=== PATIENT | female | born 1940 | race Asian ===

== ENCOUNTER 2021-12-28 22:27 | Inpatient (IN) | payer MEDICARE, OTHER ==
[~2021-12-28] VITALS: Ht 157.5 cm; Wt 60.8 kg
[~2021-12-28 22:27] MED LIST: ASPI-1169 PO; ATOR40TA PO; CHOL200026 PO; CLON0.5T4 PO; CYAN500T64 PO; DOCU-270 PO; DONE10TA44 PO; MELA3TAB41 PO; MEMA5TAB PO; MIRT-90 PO; QUET25TA PO; SENN-261 PO; VITA1TAB56 PO
--- NOTE | 2021-12-28 22:31 | NUR ---
BLADIMIR [id number] C/O HYPOXIA NOTED @ 60% IN RA, NON REBREATHER AT 88% WITH MAX O2. PATIENT A/O X 1. PATIENT TAKEN TO ER BED 09, RT AND ER MD AT BEDSIDE. PATIENT CONNECTED TO CARDIAC AND POX MONITOR.
--- NOTE | 2021-12-28 22:32 | NUR ---
RT AT PT'S BEDSIDE
[2021-12-28] MEDS ORDERED: KETAMINE HCL (500MG/10ML) 50 MG/ML VIAL ONE (22:33)
--- NOTE | 2021-12-28 22:34 | NUR ---
L HAND #18G S/L; PATENT AND INTACT
--- NOTE | 2021-12-28 22:35 | NUR ---
MARÍA BS 162
--- NOTE | 2021-12-28 22:37 | NUR ---
INTUBATION: DR. LAW MORE AND RT AT PT'S BEDSIDE. VERBAL ORDER FOR & ADMINISTERED 2235 ROCONIUM BROMIDE 60MG IVP 6 KETAMINE 120MG IVP BP 105/59 HR 135. TEMP 103.8F 2237 ETT 7CM, 23 AT THE LIP. PT TOLERATED PROCEDURE WELL.
--- NOTE | 2021-12-28 22:40 | NUR ---
VENT SETTINGS: FIO2 100 VT 450 RR 22 I:E 1:3 PEEP 5
--- NOTE | 2021-12-28 22:49 | NUR ---
RT pt intubated due to resp distress. pt intubated with ett size 7.0, 23@teeth. placement verified with etco2 detector, lung sounds, and bilateral chest rise. will confirm with xray. pt placed on vent with settings: AC 22 450 100% +5. vent plugged in to red outlet. ambu bag at bedside. alarms on and audible. will continue to monitor.
--- NOTE | 2021-12-28 22:49 | NUR ---
CALLED FACILITY TO REQUEST CLINICAL PACKET FOR PT.
--- NOTE | 2021-12-28 22:54 | NUR ---
COVID SWAB DONE AND SENT TO LAB
[2021-12-28] MEDS ORDERED: VANCOMYCIN 1 GM VIAL ONE (22:57)
--- NOTE | 2021-12-28 22:57 | NUR ---
DIRECTOR OF RESIDENCE LIFE AT PT'S BEDSIDE
--- NOTE | 2021-12-28 22:58 | NUR ---
Note wiliamone in EDM - 12/28/21 at 2301 by LAWRENCE INTUBATION: DR. LAW MORE AND RT AT PT'S BEDSIDE. VERBAL ORDER FOR & ADMINISTERED 6 ROCONIUM BROMIDE 60MG IVP 6 KETAMINE 120MG IVP BP 105/59 HR 135. TEMP 103.8F 2237 ETT 7CM, 23 AT THE LIP. PT TOLERATED PROCEDURE WELL.
[2021-12-28] MEDS ORDERED: ACETAMINOPHEN 650 MG/SUPP.RECT RC ONE (23:00)
[2021-12-28] MEDS ORDERED: CEFEPIME 1 GM in IV D5W 50 ML IV ONE (23:00)
[2021-12-28] MEDS ORDERED: ROCURONIUM BROMIDE 50 MG/5 ML IV ONE (23:00)
[2021-12-28] MEDS ORDERED: IV NS 0.9% 2,000 ML IV ONE (23:00)
[2021-12-28] MEDS ORDERED: KETAMINE HCL(200MG/20ML) 10 MG/ML VIAL IV ONE (23:00)
[2021-12-28] MEDS ORDERED: VANCOMYCIN 1 GM in IV D5W 250 ML IV ONE (23:00)
[2021-12-28] MEDS ORDERED: NOREPINEPHRINE 4 MG/4 ML AMPUL IV ONE ×2 (23:12→23:27)
[2021-12-28] MEDS ORDERED: PROPOFOL 100 ML ONE (23:12)
--- NOTE | 2021-12-28 23:16 | NUR ---
16FR F/C INSERTED. URINE COLLECTED AND SENT TO LAB
--- NOTE | 2021-12-28 23:16 | NUR ---
ATTEMPTED NGT. RESISTENCE NOTED & NOT ABLE TO INSERT NGT.
--- NOTE | 2021-12-28 23:21 | NUR ---
DR. LAW MORE AT PT'S BEDSIDE FOR PICCLINE INSERTION
[2021-12-28] MEDS ORDERED: CEFEPIME 1 GM VIAL ONE (23:38)
--- NOTE | 2021-12-28 23:40 | NUR ---
PROPOFOL INTIATED AT 5MCG/KG/MIN
--- NOTE | 2021-12-28 23:43 | NUR ---
RT AT PT'S BEDSIDE FOR ABG, GREASE WORKER AT PT'S BEDSIDE
--- NOTE | 2021-12-28 23:43 | NUR ---
RT AT BEDSIDE FOR ABG
[2021-12-28 23:51] LABS: ABG BASE EXCESS -6.2 mmol/L; ABG PCO2 28.4 mmHg (35.0-45.0); ABG PH 7.403 (7.350-7.450); ABG PO2 413.5 mmHg (75.0-100.0); COHb 0.3 % (0.5-1.5); MetHb 0.5 % (0.0-1.5); O2Hb 98.7 % (94.0-97.0); SITE, ABG Left Radial; VENT MODE, BG AC 22 450 100% +5
[2021-12-28 23:55] LABS: BILIRUBIN,URINE NEGATIVE (NEGATIVE); COLOR,URINE YELLOW (YELLOW); LEUKOCYTE ESTERASE ,URINE MODERATE (NEGATIVE); NITRITE, URINE NEGATIVE (NEGATIVE); PH,URINE 6.5 (5.0-8.0); PROTEIN,URINE NEGATIVE (NEGATIVE); UGLUCOSE NEGATIVE (NEGATIVE); UROBILINOGEN,URINE 0.2 EU/dL (0.2)
[2021-12-28 23:56] LABS: BASOPHILS % (AUTO) 0.2 % (0.0-2.0); EOSINOPHILS % (AUTO) 0.3 % (0.0-6.0); HEMATOCRIT 33 % (33-45); HEMOGLOBIN 10.9 g/dL (11.5-14.8); LYMPHOCYTES # (AUTO) 0.2 K/uL (0.8-4.8); LYMPHOCYTES % (AUTO) 13.1 % (20.0-44.0); MEAN CORPUSCULAR HGB CONC 33 g/dl (31.0-36.0); MEAN CORPUSCULAR VOLUME 90 fL (82-100); MONOCYTES # (AUTO) 0.1 K/uL (0.1-1.30); MONOCYTES % (AUTO) 8.4 % (2.0-12.0); PLATELET COUNT (AUTO) 135 K/uL (150-450); RED BLOOD CELL COUNT(AUTO) 3.68 MIL/uL (4.0-5.2)
[2021-12-29] VITALS (82 sets, daily range): BP systolic 82–164; BP diastolic 38–114
[2021-12-29] MEDS ORDERED: PROPOFOL 100 ML IV ONE
[2021-12-29] MEDS ORDERED: NOREPINEPHRINE 8 MG in IV NS 0.9% 250 ML IV ONE ×2
--- NOTE | 2021-12-29 00:13 | NUR ---
PROPOFOL INCREASED TO 8MCG/KG/MIN
[2021-12-29] MEDS ORDERED: LACT10SO3 PO (00:14)
[2021-12-29] MEDS ORDERED: ACET-73 PO (00:14)
[2021-12-29] MEDS ORDERED: ROSU10TA2 PO (00:14)
[2021-12-29] MEDS ORDERED: AMLO2.5T4 PO (00:14)
[2021-12-29] MEDS ORDERED: OMEP40CA21 PO (00:14)
[2021-12-29 00:17] LABS: WHITE BLOOD COUNT (AUTO) 1.3 K/uL (4.3-11.0)
[2021-12-29 00:20] LABS: ALANINE AMINOTRANSFERASE 17 U/L (12-78); ALBUMIN 2.1 g/dL (3.4-5.0); ALKALINE PHOSPHATASE 46 U/L (46-116); ASPARTATE AMINOTRANSFERASE 17 U/L (15-37); BILIRUBIN,DIRECT 0.1 mg/dL (0.0-0.2); BILIRUBIN,TOTAL 0.6 mg/dL (0.2-1.0); CALCIUM, SERUM 7.1 mg/dL (8.5-10.1); CARBON DIOXIDE 19 mmol/L (21-32); CHLORIDE 112 mmol/L (98-107); CREATININE 1.4 mg/dL (0.6-1.3); GLUCOSE 217 mg/dL (74-106); SODIUM SERUM 144 mmol/L (136-145); TOTAL PROTEIN, SERUM 4.8 g/dL (6.4-8.2); UREA NITROGEN, BLOOD 18 mg/dL (7-18)
[2021-12-29 00:22] LABS: POTASSIUM 2.4 mmol/L (3.5-5.1)
--- NOTE | 2021-12-29 00:28 | NUR ---
EPIC PANEL PAGED
--- NOTE | 2021-12-29 00:35 | NUR ---
LEVOPHED INITIATED AT CENTRAL LINE 0.2MCG/KG/MIN DUE TO HYPOTENSION
--- NOTE | 2021-12-29 00:40 | NUR ---
LEVOPHED INCREASED TO 0.3MCG/KG/MIN
[2021-12-29] MEDS ORDERED: POTASSIUM CL. PREMIX PERIPHER. 200 ML ONE (00:41)
[2021-12-29] MEDS: POTASSIUM CL. PREMIX PERIPHER. 50 ML IV SCH ×4 (00:45→03:54)
--- NOTE | 2021-12-29 00:47 | NUR ---
LEVOPHED TITRATED DOWN TO 0.2MCG/KG/MIN
--- NOTE | 2021-12-29 01:04 | NUR ---
REPORT TO ALINA
--- NOTE | 2021-12-29 01:31 | NUR ---
LEVOPHED TITRATED UP TO 0.3MCG/KG/MIN
--- NOTE | 2021-12-29 01:45 | NUR ---
RT AT PT'S BEDSIDE FOR ABG
[2021-12-29 01:52] LABS: ABG BASE EXCESS -8.5 mmol/L; ABG PCO2 31.2 mmHg (35.0-45.0); ABG PH 7.332 (7.350-7.450); ABG PO2 77.4 mmHg (75.0-100.0); COHb 0.3 % (0.5-1.5); MetHb 0.4 % (0.0-1.5); SITE, ABG Left Radial; VENT MODE, BG AC 18 450 50% +5
--- NOTE | 2021-12-29 02:28 | NUR ---
PT WAS NOTED HAVING A TONIC CLONIC SEIZURE, MD WAS CALLED TO BEDSIDE. RECEIVED AN ORDER TO GIVE ATIVAN 2MG IVP X 1. NOTED AND CARRIED OUT
[2021-12-29] MEDS ORDERED: LORAZEPAM INJ 2 MG/ML VIAL ONE (02:30)
[2021-12-29] MEDS ORDERED: LORAZEPAM INJ 2 MG/ML VIAL IV ONE ×2 (03:00→15:00)
[2021-12-29] MEDS ORDERED: LEVETIRACETAM (500MG) 500 MG in IV NS 0.9% 100 ML IV SCH (03:00)
[2021-12-29] MEDS ORDERED: PROPOFOL 10MG/ML 50ML 50 ML IV PRN (03:00)
[2021-12-29] MEDS ORDERED: NOREPINEPHRINE 8 MG in IV NS 0.9% 242 ML IV PRN ×2 (03:00→09:00)
[2021-12-29] MEDS ORDERED: ONDANSETRON HCL/PF 4 MG/2 ML VIAL IVP PRN (03:00)
--- NOTE | 2021-12-29 03:17 | NUR ---
PT TRANSPORTED TO CT SCAN VIA GURNEY ACCOMPANIED BY RT. PROPOFOL INFUSING AT 18MCG/KG/MIN AT LH 18G , POTASSIUM INFUSING AT 50ML/HR AT RH 18G, LEVOPHED INFUSING AT 0.3MCG/KG/MIN VIA CENTRAL LINE. PT TRANSPORTED FROM CT SCAN TO ICU TOOM 259 WITHOUT INCIDENT.
--- NOTE | 2021-12-29 03:30 | NUR ---
RN ADMISION NOTE RECEIVED PATIENT VIA GURNEY. TRANSFER TO BED WITHOUT INJURY. PATIENT IS OBTUNDED, WITHDRAWNS FROM PAIN. ON MECHANICAL VENT, 7/23CM. AC 22, TV 450 FIO2 50 PEEP 5. NO S/S PAIN. CONNECTED TO MONITOR. SINUS RHYTHM HR 90S - 110S. IV ACCESS IN RIJ PICC, LEFT AND RIGHT HAND #20. RUNNING PROPOFOL@8MCG, INCREASED TO 10MCG, K RUNNING @50ML/HR, LEVO @0.3MCG/KG/MIN. FLORES CATHETER PRESENT DRAINING TO GRAVITY. SKIN INTACT. BED IS LOW AND LOCKED, HOB ELEVTAED IN SEMI FOWLERS, SIDE RAILS UP X2, . OBTAINED ADMISSION INFO FROM [facility] FACE SHEET.
[2021-12-29] MEDS: IV NS 0.9% 1,000 ML IV PRN ×2 (03:34→15:17)
[2021-12-29] MEDS ORDERED: LEVETIRACETAM (500MG) 500 MG/5 ML VIAL IV ONE (03:40)
[2021-12-29] MEDS: ENOXAPARIN SODIUM 30 MG/0.3 ML DISP.SYRIN SQ SCH ×2 (03:42→21:06)
[2021-12-29] MEDS ORDERED: PIPERACILLIN /TAZOBACTAM 3.375 G VIAL IV ONE (04:07)
[2021-12-29] MEDS ORDERED: ZOSYN IVPB 3.375 G in IV D5W 50ml IV SCH (06:00)
--- NOTE | 2021-12-29 06:20 | NUR ---
RN CLOSING NOTE SEDATED. ON MECHANICAL VENT, 7/23CM. AC 20, TV 450 FIO2 50 PEEP 5. NO S/S PAIN. SINUS RHYTHM ON THE MONITOR. PATIENT DID HAVE A SEIZURE EPISODE, IFEANYI SKY AWARE. KEPPRA WAS INFUSING AT THAT TIME, LASTED 3 MINUTES . RIJ PICC RUNNING DIP @10, AND LEVO @0.1MCG., LEFT HAND RUNNING NS @75. FLORES CATHETER MAINTAINED. NO BM. BED IS LOW AND LOCKED, HOB ELEVTAED IN SEMI FOWLERS, SIDE RAILS UP X2,
[2021-12-29 06:41] LABS: RBC,URINE 0-2 /HPF (0-2)
[2021-12-29 06:42] LABS: BACTERIA,URINE Few /HPF (None Seen); SQUAMOUS EPITHELIAL CELL,UR Few /HPF (None Seen)
[2021-12-29] MEDS ORDERED: IV NS 0.9% 1,000 ML IV ONE (07:00)
[2021-12-29 08:24] LABS: LYMPHOCYTES % (MANUAL) 34 % (16-48); MONOCYTES % (MANUAL) 2 % (0-11.0); NEUTROPHILS % (MANUAL) 64 (42-76)
[2021-12-29 08:33] LABS: BASOPHILS % (AUTO) 0.1 % (0.0-2.0); HEMATOCRIT 35 % (33-45); HEMOGLOBIN 11.5 g/dL (11.5-14.8); LYMPHOCYTES # (AUTO) 0.5 K/uL (0.8-4.8); LYMPHOCYTES % (AUTO) 9.6 % (20.0-44.0); MEAN CORPUSCULAR HGB CONC 33 g/dl (31.0-36.0); MEAN CORPUSCULAR VOLUME 91 fL (82-100); MONOCYTES # (AUTO) 0.2 K/uL (0.1-1.30); MONOCYTES % (AUTO) 4.6 % (2.0-12.0); NEUTROPHILS # (AUTO) 4.5 K/uL (1.8-8.9); NEUTROPHILS % (AUTO) 85.7 % (43.0-81.0); PLATELET COUNT (AUTO) 160 K/uL (150-450); RED BLOOD CELL COUNT(AUTO) 3.84 MIL/uL (4.0-5.2); WHITE BLOOD COUNT (AUTO) 5.2 K/uL (4.3-11.0)
[2021-12-29 09:03] LABS: CALCIUM, SERUM 7.2 mg/dL (8.5-10.1); CARBON DIOXIDE 19 mmol/L (21-32); CHLORIDE 113 mmol/L (98-107); CREATININE 1.6 mg/dL (0.6-1.3); GLUCOSE 189 mg/dL (74-106); POTASSIUM 3.9 mmol/L (3.5-5.1); SODIUM SERUM 143 mmol/L (136-145); UREA NITROGEN, BLOOD 21 mg/dL (7-18)
[2021-12-29] MEDS: PANTOPRAZOLE 40 MG VIAL IV SCH (09:16)
[2021-12-29] MEDS: ZOSYN IVPB 2.25 G in IV D5W 50ml IV SCH ×2 (12:29→18:02)
[2021-12-29] MEDS ORDERED: ROCURONIUM BROMIDE 50 MG/5 ML IV ONE (13:11)
[2021-12-29] MEDS ORDERED: LEVETIRACETAM (500MG) 1,000 MG in IV NS 0.9% 100 ML IV STA (14:48)
[2021-12-29] MEDS ORDERED: LORAZEPAM INJ 2 MG/ML VIAL IV PRN (15:00)
[2021-12-29] MEDS: PROPOFOL 100 ML IV PRN (15:18)
[2021-12-29] MEDS: LEVETIRACETAM (500MG) 1,000 MG in IV NS 0.9% 100 ML IV SCH (21:05)
[2021-12-29] MEDS: VANCOMYCIN 1 GM in IV D5W 250ml IV SCH (22:49)
[2021-12-30] VITALS (96 sets, daily range): BP systolic 104–157; BP diastolic 51–98
[2021-12-30] MEDS: ZOSYN IVPB 2.25 G in IV D5W 50ml IV SCH ×4 (00:08→18:55)
[2021-12-30] MEDS: PROPOFOL 100 ML IV PRN ×2 (01:15→15:38)
[2021-12-30] MEDS: ACETAMINOPHEN 650 MG/SUPP.RECT RC PRN ×3 (04:18→19:04)
--- NOTE | 2021-12-30 04:18 | NUR ---
ICU/PEDODONTIST TYLENOL SUPP. GIVEN FOR TEMP. 100.8 AX. WILL CONTINUE TO MONITOR THIS PT AND HER TEMP.
[2021-12-30] MEDS: IV NS 0.9% 1,000 ML IV PRN ×2 (04:39→19:00)
[2021-12-30 05:36] LABS: BASOPHILS % (AUTO) 0.1 % (0.0-2.0); HEMATOCRIT 32 % (33-45); HEMOGLOBIN 10.6 g/dL (11.5-14.8); LYMPHOCYTES # (AUTO) 0.8 K/uL (0.8-4.8); LYMPHOCYTES % (AUTO) 6.1 % (20.0-44.0); MEAN CORPUSCULAR HGB CONC 33 g/dl (31.0-36.0); MEAN CORPUSCULAR VOLUME 89 fL (82-100); MONOCYTES # (AUTO) 0.4 K/uL (0.1-1.30); MONOCYTES % (AUTO) 3.3 % (2.0-12.0); NEUTROPHILS % (AUTO) 90.5 % (43.0-81.0); PLATELET COUNT (AUTO) 155 K/uL (150-450); RED BLOOD CELL COUNT(AUTO) 3.57 MIL/uL (4.0-5.2); WHITE BLOOD COUNT (AUTO) 13.2 K/uL (4.3-11.0)
[2021-12-30 06:14] LABS: CALCIUM, SERUM 7.2 mg/dL (8.5-10.1); CARBON DIOXIDE 22 mmol/L (21-32); CHLORIDE 114 mmol/L (98-107); CREATININE 1.2 mg/dL (0.6-1.3); GLUCOSE 104 mg/dL (74-106); MAGNESIUM 1.3 mg/dL (1.8-2.4); PHOSPHORUS 2.4 mg/dL (2.5-4.9); POTASSIUM 3.6 mmol/L (3.5-5.1); SODIUM SERUM 143 mmol/L (136-145); UREA NITROGEN, BLOOD 20 mg/dL (7-18)
--- NOTE | 2021-12-30 06:14 | NUR ---
ICU/ROPE RIDER COOLING MEASURES WERE DONE FOR TEMP. 100.8 AX EARLIER, TEMP NOW IS 100.1. WILL CONTINUE TO MONITOR THIS PT AND HER TEMP.
[2021-12-30 06:15] LABS: CHOLESTEROL 90 mg/dL (<200); HDL CHOLESTEROL 49 mg/dL (40-60); LDL 23 mg/dL (0-99); TRIGLYCERIDES 104 mg/dL (30-150)
--- NOTE | 2021-12-30 08:30 | NUR ---
RN NOTES GET TO ORDER FROM DR METZGER'S NO SEDATION VACATION TODAY. PATIENT ON DIPRIVAN FOR SEDATION 15MCG/KG/MIN, AND NS @75ML/HR. PATIENT HAS NO SEIZURE OF TWITCHING AT THIS TIME. PATIENT TOLERATING ETT/VENT SETTING, TOLERATING SETTING WELL. DUE MEDICATION ADMINISTERED, FLORES DRAINING VIA GRAVITY. ASSIST TURN AND REPOSTION Q 2 HR. OGT INTACT. WILL FOLLOW UP.
[2021-12-30] MEDS: LEVETIRACETAM (500MG) 1,000 MG in IV NS 0.9% 100 ML IV SCH (09:02)
[2021-12-30] MEDS: PANTOPRAZOLE 40 MG VIAL IV SCH (09:02)
--- NOTE | 2021-12-30 09:30 | NUR ---
RN NOTES GET STAT ORDER FOR EEG TEST PER NEUROLOGIST. ORDER TAKEN AND CARRIED OUT.
--- NOTE | 2021-12-30 12:36 | NUR ---
rn notes patient T-101.8F administered Tylenol 650 mg prn rectal supp, also started OGT feeding Jevity 1.2 @20ml/hr goal 9is 45ml/hr. will follow up..
--- NOTE | 2021-12-30 13:00 | NUR ---
rn notes patient getting EEG at this time per Dr. Messer's order.
[2021-12-30] MEDS: JEVITY 1.2 CAL 1,000 ML BOTTLE GT PRN (13:15)
[2021-12-30] MEDS ORDERED: MAGNESIUM OXIDE 400 MG TABLET NG ONE ×2 (13:30→14:30)
[2021-12-30] MEDS ORDERED: NEUTRA PHOS 1 POWD.PACKET NG ONE (15:30)
[2021-12-30 17:51] LABS: ALBUMIN 2.3 g/dL (3.4-5.0); BILIRUBIN,DIRECT 0.2 mg/dL (0.0-0.2); BILIRUBIN,TOTAL 0.6 mg/dL (0.2-1.0); TOTAL PROTEIN, SERUM 5.5 g/dL (6.4-8.2)
--- NOTE | 2021-12-30 19:04 | NUR ---
RN NOTES T-101.6 F ADMINISTERED TYLENOL 650 MG SUPP RECTAL, AND COOLING MEASURE. ENDORSED ONCOMING NURSE FOLLOW COREY,
--- NOTE | 2021-12-30 19:39 | NUR ---
CARD READER OPENING NOTES: RECEIVED PATIENT IN BED, SEDATED, PT IS OBTUNDED, RESPONSIVE TO PAINFUL STIMULI. ON MECHANICAL VENT SETTING AND PT TOLERATED WELL. 7/23CM, AC-20, TV-450, PEEP-5. O2 SAT- 97%. IV ACCESS ON RT IJ PICC, LEFT AND RT HAND#20G INTACT AND PATENT. NO S/S OF INFILTRATIONS. RUNNING PROPOFOL 20MCG, NS RUNNING AT 75CC/HR. NO FACIAL GRIMACING NOTED. NO ACUTE DISTRESS. TEMP- 101.5. COOLING MEASURES PROVIDED. FLORES CATHETER INTACT AND PATENT WITH DRAINING BY GRAVITY. ALL SAFETY MEASURES IN PLACE. BED IN LOWEST POSITION AND LOCKED. SIDE RAILS UP X3, PLACE CALL LIGHT WITH IN REACH. WILL CONTINUE TO MONITOR
[2021-12-30] MEDS: LEVETIRACETAM (500MG) 1,500 MG in IV NS 0.9% 100 ML IV SCH (20:17)
[2021-12-30] MEDS: ENOXAPARIN SODIUM 30 MG/0.3 ML DISP.SYRIN SQ SCH (20:18)
--- NOTE | 2021-12-30 20:45 | NUR ---
RN NOTES: PT WAS TAKEN TO DO CT SCAN OF THE HEAD WITH ACLS PROTOCOL. WILL CONTINUE TO MONITOR
--- NOTE | 2021-12-30 21:10 | NUR ---
RN NOTES: PT CAME BACK AFTER CT SCAN WITHOUT ANY DISTRESS. WILL CONTINUE TO MONITOR
[2021-12-30] MEDS: VANCOMYCIN 1 GM in IV D5W 250ml IV SCH (22:47)
[2021-12-31] VITALS (96 sets, daily range): BP systolic 88–174; BP diastolic 48–101
[2021-12-31] MEDS: ZOSYN IVPB 2.25 G in IV D5W 50ml IV SCH ×4 (00:20→17:43)
[2021-12-31] MEDS: PROPOFOL 100 ML IV PRN ×2 (03:09→15:01)
[2021-12-31 04:43] LABS: BASOPHILS % (AUTO) 0.1 % (0.0-2.0); EOSINOPHILS % (AUTO) 0.1 % (0.0-6.0); HEMATOCRIT 30 % (33-45); HEMOGLOBIN 9.8 g/dL (11.5-14.8); LYMPHOCYTES # (AUTO) 0.5 K/uL (0.8-4.8); LYMPHOCYTES % (AUTO) 4.2 % (20.0-44.0); MEAN CORPUSCULAR HGB CONC 33 g/dl (31.0-36.0); MEAN CORPUSCULAR VOLUME 89 fL (82-100); MONOCYTES # (AUTO) 0.2 K/uL (0.1-1.30); MONOCYTES % (AUTO) 2.2 % (2.0-12.0); NEUTROPHILS # (AUTO) 10.5 K/uL (1.8-8.9); NEUTROPHILS % (AUTO) 93.4 % (43.0-81.0); PLATELET COUNT (AUTO) 128 K/uL (150-450); RED BLOOD CELL COUNT(AUTO) 3.32 MIL/uL (4.0-5.2); WHITE BLOOD COUNT (AUTO) 11.3 K/uL (4.3-11.0)
[2021-12-31 05:06] LABS: CREATININE 0.9 mg/dL (0.6-1.3); MAGNESIUM 1.5 mg/dL (1.8-2.4); PHOSPHORUS 1.9 mg/dL (2.5-4.9); POTASSIUM 3.2 mmol/L (3.5-5.1)
[2021-12-31] MEDS: ACETAMINOPHEN 650 MG/SUPP.RECT RC PRN ×2 (05:43→12:34)
--- NOTE | 2021-12-31 05:48 | NUR ---
RN NOTES: PT'S TEMP INCREASED TO 100.2, TYLENOL SUPPOSITORY GIVEN PER PRN ORDER. PT TOLERATED WELL. WILL CONTINUE TO MONITOR
[2021-12-31 05:56] LABS: BAND % (MANUAL) 9 % (0.0-5.0); LYMPHOCYTES % (MANUAL) 2 % (16-48); MONOCYTES % (MANUAL) 1 % (0-11.0); NEUTROPHILS % (MANUAL) 88 (42-76)
--- NOTE | 2021-12-31 06:33 | NUR ---
ITALIAN TUTOR CLOSING NOTES: PATIENT IN BED, SEDATED, OBTUNDED, RESPONSIVE. ON MECHANICAL VENT SETTING AND PT TOLERATED WELL. 7/23CM, AC-20, TV-450, PEEP-5. O2 SAT- 97%. IV ACCESS ON RT IJ PICC, LEFT AND RT HAND#20G INTACT AND PATENT. NO S/S OF INFILTRATIONS. RUNNING PROPOFOL 20MCG, NS RUNNING AT 75CC/HR. NO FACIAL GRIMACING NOTED. NO ACUTE DISTRESS. TEMP INCREASED TO 101.3, TYLENOL SUPP. =GIVEN AND COOLING MEASURES PROVIDED. FLORES CATHETER INTACT AND PATENT WITH DRAINING BY GRAVITY, YELLOWISH/CLEAR URINE. OUTPUT 1300. ALL SAFETY MEASURES IN PLACE. BED IN LOWEST POSITION AND LOCKED. SIDE RAILS UP X3, PLACE CALL LIGHT WITH IN REACH. WILL ENDORSE TO MORNING SHIFT NURSE.
--- NOTE | 2021-12-31 08:05 | NUR ---
DR. METZGER SEEN MD KATHLEEN WITH AN ORDER TO SET THE OGT FEEDING RATE FROM 35 ML/HR TO 45 ML/HR GOAL RATE NOW. ORDER NOTED AND CARRIED OUT. OGT FEEDING RATE NOW RUNNING AT 45ML/HR. Addendum: 12/31/21 at 0824 by JOSELITO CHAPMAN RN ADDENDUM: ALSO MADE AWARE OF THE 100.4F BODY TEMP.
[2021-12-31] MEDS: PANTOPRAZOLE 40 MG/PACK PACK NG SCH (08:06)
[2021-12-31] MEDS ORDERED: POTASSIUM CHLORIDE 20 MEQ POWDER PACKET GT ONE (09:00)
[2021-12-31] MEDS: Magnesium 1GM/D5W 100ML PREMIX 100 ML IV SCH ×2 (09:30→10:33)
[2021-12-31] MEDS: LEVETIRACETAM (500MG) 1,500 MG in IV NS 0.9% 100 ML IV SCH (09:30)
[2021-12-31] MEDS: JEVITY 1.2 CAL 1,000 ML BOTTLE GT PRN (12:06)
[2021-12-31] MEDS: IV NS 0.9% 1,000 ML IV PRN (12:07)
[2021-12-31] MEDS ORDERED: ACETAMINOPHEN 650 MG/20.3 ML UDC NG ONE (13:00)
[2021-12-31] MEDS ORDERED: NEUTRA PHOS 1 POWD.PACKET NG ONE (15:30)
[2021-12-31] MEDS: ACETAMINOPHEN 650 MG/20.3 ML UDC NG PRN (18:21)
--- NOTE | 2021-12-31 18:21 | NUR ---
TYLENOL GIVEN VIA OGT FOR BODY FCLG=198.2F; COOLING BLANKET ON, PATIENT NO APPARENT DISTRESS NOTED
--- NOTE | 2021-12-31 19:35 | NUR ---
LICENSE AND PERMIT SPECIALIST OPENING NOTES: RECEIVED PATIENT IN BED, SEDATED, PT IS OBTUNDED, RESPONSIVE TO PAINFUL STIMULI. ON MECHANICAL VENT SETTING AND PT TOLERATED WELL. 7/23CM, AC-20, TV-450, PEEP-5. O2 SAT- 97%. IV ACCESS ON RT IJ PICC, LEFT HAND#20G INTACT AND PATENT. NO S/S OF INFILTRATIONS. RUNNING PROPOFOL 20MCG, NS RUNNING AT 75CC/HR. NO FACIAL GRIMACING NOTED. NO ACUTE DISTRESS. TEMP- 100.4, COOLING BLANKET ON. FLORES CATHETER INTACT AND PATENT WITH DRAINING BY GRAVITY. ALL SAFETY MEASURES IN PLACE. BED IN LOWEST POSITION AND LOCKED. SIDE RAILS UP X3, PLACE CALL LIGHT WITH IN REACH. WILL CONTINUE TO MONITOR
[2021-12-31] MEDS: LEVETIRACETAM SOL (5 ML) 100 MG/ML UDC NG SCH (20:54)
[2021-12-31] MEDS: ENOXAPARIN SODIUM 30 MG/0.3 ML DISP.SYRIN SQ SCH (20:55)
[2021-12-31] MEDS: VANCOMYCIN 1 GM in IV D5W 250ml IV SCH (23:06)
--- NOTE | 2021-12-31 23:30 | NUR ---
RN NOTES: NOTED MILD AGITATION, PT TRIED TOP BITE ET TUBE, INCREASED PROPOFOL BY 5 MCG. PT TOLERATED WELL. WILL CONTINUE TO MONITOR
[2022-01-01] VITALS (57 sets, daily range): BP systolic 96–154; BP diastolic 53–83
[2022-01-01] MEDS: ZOSYN IVPB 2.25 G in IV D5W 50ml IV SCH ×5 (00:24→23:39)
[2022-01-01] MEDS: PROPOFOL 100 ML IV PRN ×2 (02:01→12:21)
[2022-01-01 04:28] LABS: BASOPHILS % (AUTO) 0.1 % (0.0-2.0); EOSINOPHILS % (AUTO) 1.3 % (0.0-6.0); HEMATOCRIT 28 % (33-45); HEMOGLOBIN 9.4 g/dL (11.5-14.8); LYMPHOCYTES # (AUTO) 0.4 K/uL (0.8-4.8); LYMPHOCYTES % (AUTO) 4.5 % (20.0-44.0); MEAN CORPUSCULAR HGB CONC 34 g/dl (31.0-36.0); MEAN CORPUSCULAR VOLUME 88 fL (82-100); MONOCYTES # (AUTO) 0.3 K/uL (0.1-1.30); MONOCYTES % (AUTO) 3.2 % (2.0-12.0); NEUTROPHILS # (AUTO) 8.4 K/uL (1.8-8.9); NEUTROPHILS % (AUTO) 90.9 % (43.0-81.0); PLATELET COUNT (AUTO) 128 K/uL (150-450); RED BLOOD CELL COUNT(AUTO) 3.14 MIL/uL (4.0-5.2); WHITE BLOOD COUNT (AUTO) 9.3 K/uL (4.3-11.0)
[2022-01-01 04:38] LABS: CALCIUM, SERUM 7.1 mg/dL (8.5-10.1); CARBON DIOXIDE 24 mmol/L (21-32); CHLORIDE 115 mmol/L (98-107); CREATININE 0.9 mg/dL (0.6-1.3); GLUCOSE 125 mg/dL (74-106); MAGNESIUM 2.1 mg/dL (1.8-2.4); PHOSPHORUS 2.3 mg/dL (2.5-4.9); POTASSIUM 3.5 mmol/L (3.5-5.1); SODIUM SERUM 146 mmol/L (136-145); UREA NITROGEN, BLOOD 12 mg/dL (7-18)
[2022-01-01] MEDS: IV NS 0.9% 1,000 ML IV PRN ×2 (05:22→18:31)
--- NOTE | 2022-01-01 06:44 | NUR ---
NETWORK FIREWALL ENGINEER CLOSING NOTES: PATIENT IN BED, SEDATED, OBTUNDED, RESPONSIVE TO PAINFUL STIMULI. ON MECHANICAL VENT SETTING AND PT TOLERATED WELL. 7/23CM, AC-20, TV-450, PEEP-5. O2 SAT- 97%. IV ACCESS ON RT IJ PICC, LEFT HAND#20G INTACT AND PATENT. NO S/S OF INFILTRATIONS. RUNNING PROPOFOL 25MCG, NS RUNNING AT 75CC/HR. NO FACIAL GRIMACING NOTED. NO ACUTE DISTRESS. TEMP- 99.5 F. FLORES CATHETER INTACT AND PATENT WITH DRAINING BY GRAVITY. URINE OUTPUT 1050CC. ALL DUE MEDS GIVEN ORDERED. ALL SAFETY MEASURES IN PLACE. BED IN LOWEST POSITION AND LOCKED. SIDE RAILS UP X3, PLACE CALL LIGHT WITH IN REACH. WILL ENDORSE TO MORNING SHIFT NURSE.
--- NOTE | 2022-01-01 07:29 | NUR ---
RN OPENING NOTE PATIENT RECEIVED IN BED, INTUBATED, FIO2 40% WITH NO SIGNS OF LABORED BREATHING AT THIS TIME SAT 98% ON BEDSIDE MONITOR. FLORES CATH IN PLACE, PATENT AND DRAINING. GTUBE IN PLACE RUNNING JEVITY AT 45 CC/HR. RIGHT IJ PICC AND LEFT HAND IV IN PLACE RUNNING PROPOFOL AT 25 MCG/KG/MIN AND NS AT 75 CC/HR. BED LOCKED AND IN LOWEST POSITION, CALL LIGHT WITHIN REACH, 3 SIDE RAILS UP.
[2022-01-01] MEDS: LEVETIRACETAM SOL (5 ML) 100 MG/ML UDC NG SCH ×2 (08:05→20:07)
[2022-01-01] MEDS: PANTOPRAZOLE 40 MG/PACK PACK NG SCH (08:05)
[2022-01-01 08:12] LABS: ABG BASE EXCESS -3.5 mmol/L; ABG OXYGEN SATURATION 96.7 % (92.0-98.5); ABG PCO2 31.8 mmHg (35.0-45.0); ABG PH 7.421 (7.350-7.450); AaDO2 159.6 mmHg; COHb 0.3 % (0.5-1.5); MetHb 0.4 % (0.0-1.5); SITE, ABG Right Radial
[2022-01-01] MEDS ORDERED: NEUTRA PHOS 1 POWD.PACKET NG ONE (10:00)
--- NOTE | 2022-01-01 10:18 | NUR ---
RN NOTE SEDATION OFF PER DR. METZGER ORDER. PATIENT ABLE TO OPEN EYES TO PAINFUL STIMULI. UNABLE TO MOVE FINGERS. MINOR TOES WIGGLE TO TOUCH. PER DR. METZGER, KEEP PT OFF SEDATION IF PT DOES NOT SHOW SIGNS OF DISTRESS.
--- NOTE | 2022-01-01 12:31 | NUR ---
RN NOTE PATIENT FIGHTING VET, SHOWING SIGNS OF DISTRESS AND DISCOMFORT. PT PLACED BACK ON PROPOFOL DRIP PER PROTOCOL.
[2022-01-01] MEDS: JEVITY 1.2 CAL 1,000 ML BOTTLE GT PRN (15:57)
--- NOTE | 2022-01-01 19:05 | NUR ---
RN CLOSING NOTE PATIENT REMAINS IN BED, INTUBATED, FIO2 40% WITH NO SIGNS OF LABORED BREATHING AT THIS TIME SAT 98% ON BEDSIDE MONITOR. FLORES CATH IN PLACE, PATENT AND DRAINING. OGTUBE IN PLACE RUNNING JEVITY AT 45 CC/HR. RIGHT IJ PICC AND LEFT HAND IV IN PLACE RUNNING PROPOFOL AT 20 MCG/KG/MIN AND NS AT 75 CC/HR. NO SIGNS OF ACUTE DISTRESS NOTED AT THIS TIME. ALL NEEDS ATTENDED DURING SHIFT. BED LOCKED AND IN LOWEST POSITION, CALL LIGHT WITHIN REACH, 3 SIDE RAILS UP. ENDORSED TO WOOD HEEL FINISHER NURSE TO [facility].
--- NOTE | 2022-01-01 19:57 | NUR ---
TOP AND SEAT COVER FITTER NOTE PT IN BED SEDATED. ETT INTACT AND PATENT, PT TOLERATING VENT SETTINGS WELL. NO SOB, NO DISTRESS OR DISCOMFORT NOTED. NO S/S OF PAIN NOTED. ON TELE MONITOR SR HR 85. F/C INTACT AND PATENT DRAINING YELLOWISH COLOR URINE. RIJ PICC INTACT AND PATENT INFUSING PROPOFOL 20 MCG/KG/MIN, NS AT 75 ML/HR, NO S/S OF INFILTRATION NOTED. LT HAND SL INTACT AND PATENT. ALL NEEDS ATTENDED. KEPT HER DRY AND CLEAN. REPOSITION HER FOR SKIN MANAGEMENT. VSS CONTINUE TO MONITOR HER.
[2022-01-01] MEDS: ACETAMINOPHEN 650 MG/20.3 ML UDC NG PRN (20:07)
[2022-01-01] MEDS: ENOXAPARIN SODIUM 30 MG/0.3 ML DISP.SYRIN SQ SCH (20:08)
--- NOTE | 2022-01-01 20:16 | NUR ---
BLOG WRITER NOTE PT IS WITH FEVER 100.6, TYLENOL 650 MG VIA OGT GIVEN, ALSO APPLIED BODY COOLING MEASURES. WILL RECHECK IN AN HOUR TEMP.
[2022-01-02] VITALS (29 sets, daily range): BP systolic 100–165; BP diastolic 48–96
[2022-01-02] MEDS: VANCOMYCIN 1 GM in IV D5W 250ml IV SCH ×2 (00:18→22:36)
[2022-01-02] MEDS: PROPOFOL 100 ML IV PRN ×2 (00:24→09:51)
[2022-01-02 04:46] LABS: BASOPHILS % (AUTO) 0.2 % (0.0-2.0); EOSINOPHILS % (AUTO) 2.4 % (0.0-6.0); HEMATOCRIT 27 % (33-45); HEMOGLOBIN 8.9 g/dL (11.5-14.8); LYMPHOCYTES # (AUTO) 0.5 K/uL (0.8-4.8); LYMPHOCYTES % (AUTO) 6.5 % (20.0-44.0); MEAN CORPUSCULAR HGB CONC 33 g/dl (31.0-36.0); MEAN CORPUSCULAR VOLUME 89 fL (82-100); MONOCYTES # (AUTO) 0.4 K/uL (0.1-1.30); MONOCYTES % (AUTO) 5.8 % (2.0-12.0); NEUTROPHILS # (AUTO) 6.3 K/uL (1.8-8.9); NEUTROPHILS % (AUTO) 85.1 % (43.0-81.0); PLATELET COUNT (AUTO) 135 K/uL (150-450); RED BLOOD CELL COUNT(AUTO) 2.99 MIL/uL (4.0-5.2); WHITE BLOOD COUNT (AUTO) 7.4 K/uL (4.3-11.0)
[2022-01-02 05:13] LABS: CALCIUM, SERUM 7.2 mg/dL (8.5-10.1); CARBON DIOXIDE 25 mmol/L (21-32); CHLORIDE 114 mmol/L (98-107); CREATININE 0.8 mg/dL (0.6-1.3); GLUCOSE 150 mg/dL (74-106); PHOSPHORUS 2.6 mg/dL (2.5-4.9); POTASSIUM 3.7 mmol/L (3.5-5.1); SODIUM SERUM 147 mmol/L (136-145); UREA NITROGEN, BLOOD 10 mg/dL (7-18)
[2022-01-02] MEDS: ZOSYN IVPB 2.25 G in IV D5W 50ml IV SCH ×3 (06:27→17:24)
--- NOTE | 2022-01-02 07:00 | NUR ---
RN NOTE RECEIVED PATIENT IN BED RESTING SEDATED ORALLY INTUBATED ON MECHANICAL VENT ON OGT JEVITY 1.2 45CC/HR CHECKED PLACEMENT IN PLACE NO RESIDUAL NOTED,ON PROPOFOL 20/MCG/KG/MIN,ON IV HYDRATION NS 75CC/HR,IV SITE IS ON RIGHT EJ PICC LINE THREE LUMEN INTACT PATENT,FLORES CATHETER IN PLACE,URINE DRAINING YELLOW AND CLEAR BY GRAVITY,SAFETY MEASURE IMPLEMENT,HEAD OF THE BED ELEVATED BED IN LOW POSITION AND LOCKED,CONTINUE TO MONITOR.
[2022-01-02] MEDS: PANTOPRAZOLE 40 MG/PACK PACK NG SCH (07:38)
--- NOTE | 2022-01-02 08:18 | NUR ---
WOUND CARE CONSULT: PT PRESENTS WITH LEFT KNEE ABRASION/BLISTER. SCANT SEROUS DRAINAGE NOTED. PT NOTED TO BE RUBBING HER KNEES TOGETHER AT TIMES. RECOMMENDATIONS MADE FOR SKIN PROTECTION AND WOUND CARE. DISCUSSED WITH NURSING STAFF. PT IS ON ANNA ISOFLEX LOW AIRLOSS BED. PT NOTED TO BE HAVING VERY LOOSE STOOL. IN AGREEMENT WITH PLAN OF CARE. Addendum: 01/02/22 at 0820 by MARIAMA SERRANO WNDNU Amended: Links added.
[2022-01-02] MEDS: LEVETIRACETAM SOL (5 ML) 100 MG/ML UDC NG SCH ×2 (09:09→20:46)
[2022-01-02] MEDS: IV NS 0.9% 1,000 ML IV PRN (10:53)
--- NOTE | 2022-01-02 19:26 | NUR ---
RN NOTE PATIENT REMAINS SEDATED ON MECHANICAL VENT NO SOB NOT ACUTE DISTRESS NOTED, ON IV HYDRATION NS 75CC/HR KEPT CLEAN AND DRY ALL THE TIME,REPOSITION EVERY 2 HOURS,HEAD OF THE BED ELEVATED,ALL DUE MEDS GIVEN MD ORDERED,ALL NEEDS MET ENDORSE NEXT COMING SHIFT FOR CONTINUATION OF CARE.
--- NOTE | 2022-01-02 20:00 | NUR ---
RN NOTE RECEIVED PT ON MECHVENT, SEDATED ON PROPOFOL AT 20MCG/KG/MIN. NO SIGNS OF DISTRESS NOTED. RIJ INTACT AND PATENT, NS RUNNING AT 75ML/HR. OGT IN PLACE, AUSCULTATED FOR PLACEMENT, PATENT. MINIMAL RESIDUALS WERE NOTED ABOUT 10ML. HOB ELEVATED. FLORES IN PLACE. DRAINING CLEAR URINE OUTPUT. WILL CONTINUE TO MONITOR.
[2022-01-02] MEDS: ACETAMINOPHEN 650 MG/20.3 ML UDC NG PRN (20:46)
--- NOTE | 2022-01-02 20:53 | NUR ---
SPUTUM SAMPLE COLLECTED.
[2022-01-02] MEDS: ENOXAPARIN SODIUM 30 MG/0.3 ML DISP.SYRIN SQ SCH (21:14)
[2022-01-03] VITALS (59 sets, daily range): BP systolic 94–177; BP diastolic 27–153
[2022-01-03] MEDS: ZOSYN IVPB 2.25 G in IV D5W 50ml IV SCH ×4 (00:03→17:37)
[2022-01-03] MEDS: JEVITY 1.2 CAL 1,000 ML BOTTLE GT PRN (00:04)
[2022-01-03] MEDS: PROPOFOL 100 ML IV PRN ×2 (00:09→17:38)
[2022-01-03] MEDS: IV NS 0.9% 1,000 ML IV PRN ×2 (03:22→17:50)
[2022-01-03 05:19] LABS: BASOPHILS % (AUTO) 0.3 % (0.0-2.0); HEMATOCRIT 26 % (33-45); HEMOGLOBIN 8.6 g/dL (11.5-14.8); LYMPHOCYTES # (AUTO) 0.6 K/uL (0.8-4.8); LYMPHOCYTES % (AUTO) 7.9 % (20.0-44.0); MEAN CORPUSCULAR HGB CONC 33 g/dl (31.0-36.0); MEAN CORPUSCULAR VOLUME 89 fL (82-100); MONOCYTES # (AUTO) 0.6 K/uL (0.1-1.30); MONOCYTES % (AUTO) 7.5 % (2.0-12.0); NEUTROPHILS # (AUTO) 5.9 K/uL (1.8-8.9); NEUTROPHILS % (AUTO) 80.3 % (43.0-81.0); PLATELET COUNT (AUTO) 181 K/uL (150-450); RED BLOOD CELL COUNT(AUTO) 2.89 MIL/uL (4.0-5.2); WHITE BLOOD COUNT (AUTO) 7.4 K/uL (4.3-11.0)
[2022-01-03 06:18] LABS: CALCIUM, SERUM 7.3 mg/dL (8.5-10.1); CARBON DIOXIDE 26 mmol/L (21-32); CHLORIDE 111 mmol/L (98-107); CREATININE 0.8 mg/dL (0.6-1.3); GLUCOSE 111 mg/dL (74-106); PHOSPHORUS 2.9 mg/dL (2.5-4.9); POTASSIUM 3.9 mmol/L (3.5-5.1); SODIUM SERUM 143 mmol/L (136-145); UREA NITROGEN, BLOOD 9 mg/dL (7-18)
--- NOTE | 2022-01-03 06:42 | NUR ---
RN NOTE PT TOLERATES VENT SETTING, O2SAT AT 98%. NO RESP DISTRESS NOTED. TOLERATES GT FEEDING, JEVITY AT 45ML/HR. NO RESIDUALS NOTED, NO S.SX OF ASPIRATION NOTED. KEPT HOB ELEVATED. CONTINUE ON PROPOFOL AT 20MCG/KG/MIN AND NS AT 75ML/HR. INFUSING WELL, RIJ TLC REMAIN INTACT AND PATENT. NO SEIZURE NOTED DURING SHIFT. TURNED AND REPOSITIONED. FLORES DRAINING WELL. WILL ENDORSE TO NEXT SHIFT NURSE FOR COREY.
--- NOTE | 2022-01-03 08:36 | NUR ---
RN NOTES GET TO ORDER FOR Dr METZGER TO STOP SEDATION FOR WEANING FROM VENT. ORDER TAKEN AND CARRIED OUT.
[2022-01-03] MEDS: LEVETIRACETAM SOL (5 ML) 100 MG/ML UDC NG SCH ×2 (08:40→21:03)
[2022-01-03] MEDS: PANTOPRAZOLE 40 MG/PACK PACK NG SCH (08:40)
--- NOTE | 2022-01-03 10:00 | NUR ---
RN NOTES SEDATION OFF , PATIENT CALM AND COOPERATIVE, SUCTION, MOUTH CARE DONE, PATIENT OPEN EYES WHEN CALLING NAME, OR TOUCHED. NO RESIDUAL, TOLERATING FEEDING WELL, ASSIST TURN AND REPOSTION Q 2 HR, WILL FOLLOW UP .
--- NOTE | 2022-01-03 15:00 | NUR ---
rn notes patient stile off sedation, assist turn and reposition q 2 hr. Endorsed Denise RN follow plan of care.
--- NOTE | 2022-01-03 15:10 | NUR ---
RECEIVED REPORT FROM SOPHIE FOR CONTINUITY OF PATIENT'S CARE. PATIENT NO APPARENT DISTRESS NOTED AT THIS TIME. KEPT PT. COMFORTABLE, CLEAN AND DRY.
[2022-01-03] MEDS: ENOXAPARIN SODIUM 30 MG/0.3 ML DISP.SYRIN SQ SCH (21:03)
[2022-01-03] MEDS: VANCOMYCIN 1 GM in IV D5W 250ml IV SCH (22:31)
[2022-01-04] VITALS (34 sets, daily range): BP systolic 107–167; BP diastolic 53–97
[2022-01-04] MEDS: PROPOFOL 100 ML IV PRN (02:44)
[2022-01-04 04:28] LABS: BASOPHILS % (AUTO) 0.2 % (0.0-2.0); HEMATOCRIT 25 % (33-45); HEMOGLOBIN 8.3 g/dL (11.5-14.8); LYMPHOCYTES # (AUTO) 0.3 K/uL (0.8-4.8); LYMPHOCYTES % (AUTO) 4.4 % (20.0-44.0); MEAN CORPUSCULAR HGB CONC 33 g/dl (31.0-36.0); MEAN CORPUSCULAR VOLUME 88 fL (82-100); MONOCYTES # (AUTO) 0.4 K/uL (0.1-1.30); MONOCYTES % (AUTO) 5.3 % (2.0-12.0); NEUTROPHILS # (AUTO) 6.5 K/uL (1.8-8.9); NEUTROPHILS % (AUTO) 90.1 % (43.0-81.0); PLATELET COUNT (AUTO) 251 K/uL (150-450); RED BLOOD CELL COUNT(AUTO) 2.84 MIL/uL (4.0-5.2); WHITE BLOOD COUNT (AUTO) 7.2 K/uL (4.3-11.0)
[2022-01-04 04:50] LABS: CALCIUM, SERUM 7.7 mg/dL (8.5-10.1); CARBON DIOXIDE 27 mmol/L (21-32); CHLORIDE 113 mmol/L (98-107); CREATININE 0.8 mg/dL (0.6-1.3); GLUCOSE 230 mg/dL (74-106); MAGNESIUM 2.1 mg/dL (1.8-2.4); PHOSPHORUS 2.3 mg/dL (2.5-4.9); POTASSIUM 3.1 mmol/L (3.5-5.1); SODIUM SERUM 147 mmol/L (136-145); UREA NITROGEN, BLOOD 12 mg/dL (7-18)
[2022-01-04] MEDS: JEVITY 1.2 CAL 1,000 ML BOTTLE GT PRN (06:00)
[2022-01-04] MEDS: ZOSYN IVPB 2.25 G in IV D5W 50ml IV SCH ×5 (06:00→17:03)
--- NOTE | 2022-01-04 07:00 | NUR ---
RN NOTES RECEIVED PT ON BED INTUBATED AND SEDATED, ON DIPRIVAN AT 30MCG/KG/MIN , ON TELE SB-SR, IV SITES CLEAN ,DRY AND INTACT, SR UP x3, CALL LIGHT WITHIN EASY REACH, BED LOCKED AND IN LOWEST POSITION, TF AT 45 CCC/HR RUNNING , NO RESIDUAL NOTED , SR UP x3, CALL LIGHT WITHIN EASY REACH, BED LOCKED AND IN LOWEST POSITION, CONTINUE TO MONITOR.
[2022-01-04] MEDS: PANTOPRAZOLE 40 MG/PACK PACK NG SCH (07:30)
[2022-01-04] MEDS: LEVETIRACETAM SOL (5 ML) 100 MG/ML UDC NG SCH ×2 (08:01→20:36)
[2022-01-04] MEDS: IV NS 0.9% 1,000 ML IV PRN (09:24)
[2022-01-04] MEDS: hydrALAZINE HCL IV 20 MG VIAL IV PRN (09:44)
[2022-01-04 09:50] LABS: LYMPHOCYTES % (MANUAL) 6 % (16-48); MONOCYTES % (MANUAL) 6 % (0-11.0); NEUTROPHILS % (MANUAL) 88 (42-76)
[2022-01-04] MEDS ORDERED: POTASSIUM CHLORIDE 20 MEQ POWDER PACKET GT SCH (10:00)
[2022-01-04] MEDS ORDERED: POTASSIUM PHOSPHATE MM 7.5 MMOL in IV NS 0.9% 100 ML IV SCH (11:00)
--- NOTE | 2022-01-04 11:18 | NUR ---
RN NOTES PT OFF SEDATION , DOES NOT FOLLOW COMMAND , OPENS EYES AT TIMES , MODERATED SECRETION NOTED, CONTINUE TO MONITOR.
--- NOTE | 2022-01-04 14:00 | NUR ---
RN NOTES PT OFF SEDATION , ETT AND ORAL SUCTIONING DONE, MODERATED AMOUNT OF SECRETION NOTED. TOLERAING VENT SETTING WELL, FLORES DRAINING TO GRAVITY, TF AT 45CC/HR RUNNING , IVF AT 75CC/HR RUNNING , SR UP x3, CALL LIGHT WITHIN EASY REACH, BED LOCKED AND IN LOWEST POSITION, WILL ENDORSE TO INTERNAL GRINDER TENDER NURSE FOR CONTINUITY OF CARE . Addendum: 01/04/22 at 1853 by CRYSTAL SANTAMARIA RN CORRECTION TIME IS 1800
[2022-01-04] MEDS: ENOXAPARIN SODIUM 30 MG/0.3 ML DISP.SYRIN SQ SCH (20:36)
[2022-01-04] MEDS: ACETAMINOPHEN 650 MG/20.3 ML UDC NG PRN (20:36)
[2022-01-04] MEDS: VANCOMYCIN 1 GM in IV D5W 250ml IV SCH (22:49)
[2022-01-05] VITALS (26 sets, daily range): BP systolic 96–149; BP diastolic 48–82
[2022-01-05] MEDS: ZOSYN IVPB 2.25 G in IV D5W 50ml IV SCH ×4 (00:04→17:33)
[2022-01-05] MEDS: IV NS 0.9% 1,000 ML IV PRN ×2 (01:06→15:37)
[2022-01-05] MEDS: JEVITY 1.2 CAL 1,000 ML BOTTLE GT PRN (05:19)
[2022-01-05] MEDS: PROPOFOL 100 ML IV PRN ×5 (05:20→22:37)
[2022-01-05 05:36] LABS: BASOPHILS % (AUTO) 0.1 % (0.0-2.0); HEMATOCRIT 25 % (33-45); HEMOGLOBIN 8.4 g/dL (11.5-14.8); LYMPHOCYTES # (AUTO) 0.7 K/uL (0.8-4.8); LYMPHOCYTES % (AUTO) 6.3 % (20.0-44.0); MEAN CORPUSCULAR HGB CONC 34 g/dl (31.0-36.0); MEAN CORPUSCULAR VOLUME 89 fL (82-100); MONOCYTES # (AUTO) 0.7 K/uL (0.1-1.30); MONOCYTES % (AUTO) 6.2 % (2.0-12.0); NEUTROPHILS # (AUTO) 9.4 K/uL (1.8-8.9); NEUTROPHILS % (AUTO) 86.4 % (43.0-81.0); PLATELET COUNT (AUTO) 327 K/uL (150-450); RED BLOOD CELL COUNT(AUTO) 2.82 MIL/uL (4.0-5.2); WHITE BLOOD COUNT (AUTO) 10.9 K/uL (4.3-11.0)
[2022-01-05 05:50] LABS: CALCIUM, SERUM 7.4 mg/dL (8.5-10.1); CARBON DIOXIDE 26 mmol/L (21-32); CHLORIDE 114 mmol/L (98-107); CREATININE 0.8 mg/dL (0.6-1.3); GLUCOSE 135 mg/dL (74-106); MAGNESIUM 1.9 mg/dL (1.8-2.4); PHOSPHORUS 2.7 mg/dL (2.5-4.9); POTASSIUM 3.8 mmol/L (3.5-5.1); SODIUM SERUM 148 mmol/L (136-145); UREA NITROGEN, BLOOD 12 mg/dL (7-18)
--- NOTE | 2022-01-05 07:30 | NUR ---
RN OPENING NOTE PT RECEIVED IN BED WITH HOB 35 DEGREES. PT IS ON MECHANICAL VENT WITH ALL PRESCRIBED SETTINGS TOLERATING WELL WITH NO SIGNS OF DISTRESS OR LABORED BREATHING SAT 99%. PT IS SEDATED WITH DIPRIVAN @50MCG/HR. FC IS IN PLACE DRAINING URINE TO GRAVITY AND OGT IS IN PLACE WITH POSITIVE PLACEMENT INFUSING WITH JEVITY @45ML/HR. IV ACCESS R IJ TLC INFUSING WITH NS @75ML/HR AND L CHAUHAN 18G. BED IS LOCKED IN LOWEST POSITION X2 BED RAILS UP AND ALL HOSPITAL SAFETY MEASURES ARE IN PLACE. WILL CONTINUE TO MONITOR THIS SHIFT.
[2022-01-05] MEDS: PANTOPRAZOLE 40 MG/PACK PACK NG SCH (08:12)
[2022-01-05] MEDS: LEVETIRACETAM SOL (5 ML) 100 MG/ML UDC NG SCH ×2 (08:13→21:00)
--- NOTE | 2022-01-05 18:50 | NUR ---
RN CLOSING NOTE PT RECEIVED IN BED WITH HOB 35 DEGREES. PT IS ON MECHANICAL VENT WITH ALL PRESCRIBED SETTINGS TOLERATING WELL WITH NO SIGNS OF DISTRESS OR LABORED BREATHING SAT 100%. PT IS SEDATED WITH DIPRIVAN @50MCG/HR. FC IS IN PLACE DRAINING URINE TO GRAVITY AND OGT IS IN PLACE WITH POSITIVE PLACEMENT INFUSING WITH JEVITY @45ML/HR. IV ACCESS R IJ TLC INFUSING WITH NS @75ML/HR AND L CHAUHAN 18G. BED IS LOCKED IN LOWEST POSITION X2 BED RAILS UP AND ALL HOSPITAL SAFETY MEASURES ARE IN PLACE. WILL ENDORSE TO FIREPERSON NURSE FOR COREY.
[2022-01-05] MEDS: ACETAMINOPHEN 650 MG/20.3 ML UDC NG PRN (21:00)
[2022-01-05] MEDS: ENOXAPARIN SODIUM 30 MG/0.3 ML DISP.SYRIN SQ SCH (21:01)
[2022-01-05] MEDS ORDERED: VANCOMYCIN 1.25 GM in IV D5W 250 ML IV SCH (22:00)
[2022-01-06] VITALS (37 sets, daily range): BP systolic 106–163; BP diastolic 51–81
[2022-01-06] MEDS: PROPOFOL 100 ML IV PRN ×5 (04:17→23:08)
[2022-01-06 05:02] LABS: BASOPHILS % (AUTO) 0.1 % (0.0-2.0); EOSINOPHILS % (AUTO) 3.5 % (0.0-6.0); HEMATOCRIT 23 % (33-45); HEMOGLOBIN 7.8 g/dL (11.5-14.8); LYMPHOCYTES # (AUTO) 0.8 K/uL (0.8-4.8); LYMPHOCYTES % (AUTO) 7.9 % (20.0-44.0); MEAN CORPUSCULAR HGB CONC 34 g/dl (31.0-36.0); MEAN CORPUSCULAR VOLUME 88 fL (82-100); MONOCYTES # (AUTO) 0.4 K/uL (0.1-1.30); NEUTROPHILS # (AUTO) 8.1 K/uL (1.8-8.9); NEUTROPHILS % (AUTO) 84.5 % (43.0-81.0); PLATELET COUNT (AUTO) 317 K/uL (150-450); RED BLOOD CELL COUNT(AUTO) 2.57 MIL/uL (4.0-5.2); WHITE BLOOD COUNT (AUTO) 9.6 K/uL (4.3-11.0)
[2022-01-06 05:13] LABS: CALCIUM, SERUM 7.4 mg/dL (8.5-10.1); CARBON DIOXIDE 26 mmol/L (21-32); CHLORIDE 112 mmol/L (98-107); CREATININE 0.8 mg/dL (0.6-1.3); GLUCOSE 128 mg/dL (74-106); MAGNESIUM 1.8 mg/dL (1.8-2.4); PHOSPHORUS 4.1 mg/dL (2.5-4.9); POTASSIUM 3.5 mmol/L (3.5-5.1); SODIUM SERUM 146 mmol/L (136-145); UREA NITROGEN, BLOOD 10 mg/dL (7-18)
[2022-01-06] MEDS: JEVITY 1.2 CAL 1,000 ML BOTTLE GT PRN (05:19)
[2022-01-06] MEDS: ZOSYN IVPB 2.25 G in IV D5W 50ml IV SCH ×6 (05:19→23:16)
[2022-01-06] MEDS: PANTOPRAZOLE 40 MG/PACK PACK NG SCH (07:40)
[2022-01-06] MEDS: LEVETIRACETAM SOL (5 ML) 100 MG/ML UDC NG SCH ×2 (07:41→21:04)
--- NOTE | 2022-01-06 08:00 | NUR ---
RN NOTES RECEIVED ETT/VENT SETTING, TOLERATING WELL WITH NO SIGNS OF DISTRESS OR LABORED BREATHING O2-99%. PT IS SEDATED WITH DIPRIVAN @50MCG/HR. FC IS IN PLACE DRAINING URINE TO GRAVITY AND OGT IS IN PLACE WITH POSITIVE PLACEMENT INFUSING WITH JEVITY @45ML/HR, NO RESIDUAL. DUE MEDICATION ADMINISTERED. IV ACCESS RIJ TLC INFUSING WITH NS @75ML/HR . PATIENT HAS GENERALIZED EDEMA. ASSIST TURN ND REPOSTION Q 2 HR, KEEP HOB ELEVATED FOR ASPIRATION PRECAUTION. WILL FOLLOW UP.
[2022-01-06] MEDS: IV NS 0.9% 1,000 ML IV PRN ×2 (08:58→23:07)
--- NOTE | 2022-01-06 10:00 | NUR ---
RN NOTES NO SEDATION VACATION TODAY PER DR SANCHEZ.
[2022-01-06] MEDS: hydrALAZINE HCL IV 20 MG VIAL IV PRN (18:55)
--- NOTE | 2022-01-06 18:55 | NUR ---
RN NOTES ADMINISTERED HYDRALAZINE 10MG/ML IV PUSH FOR BP 160/68, P-68, PM MEDS ADMINISTERED. PM CARE DONE, SUCTION, ASSIST TURN, AND REPOSTION Q 2 HR, ENDORSED ONCOMING NURSE COREY.
--- NOTE | 2022-01-06 19:30 | NUR ---
RN NOTES RECEIVED CARE OF PATIENT FROM AM NURSE. PATIENT INTUBATED WITH ETT, WITH VENTILATOR SETTINGS ORDERED, TOLERATING WELL, O2 SAT 98%, MINOR SECRETIONS AUSCULTATED IN PATIENT'S LUNGS, SUCTIONED PATIENT. PATIENT SEDATED WITH DIPRIVAN DRIP RUNNING AT 50 MCG/KG/MIN, IV NS RUNNING AT 75 ML/HR. FC IS IN PLACE DRAINING YELLOW URINE TO GRAVITY AND OGT IS IN PLACE WITH POSITIVE PLACEMENT INFUSING WITH JEVITY @45ML/HR, NO RESIDUAL NOTED. SAFETY MEASURES IMPLEMENTED PER HOSPITAL PROTOCOLS. WILL CONTINUE TO MONITOR PATIENT.
[2022-01-06] MEDS: ENOXAPARIN SODIUM 30 MG/0.3 ML DISP.SYRIN SQ SCH (21:05)
[2022-01-07] VITALS (42 sets, daily range): BP systolic 90–168; BP diastolic 6–83
[2022-01-07] MEDS: PROPOFOL 100 ML IV PRN ×4 (04:33→21:43)
[2022-01-07 04:44] LABS: BASOPHILS % (AUTO) 0.3 % (0.0-2.0); EOSINOPHILS % (AUTO) 2.5 % (0.0-6.0); HEMATOCRIT 23 % (33-45); HEMOGLOBIN 7.8 g/dL (11.5-14.8); LYMPHOCYTES # (AUTO) 0.7 K/uL (0.8-4.8); LYMPHOCYTES % (AUTO) 6.9 % (20.0-44.0); MEAN CORPUSCULAR HGB CONC 34 g/dl (31.0-36.0); MEAN CORPUSCULAR VOLUME 88 fL (82-100); MONOCYTES # (AUTO) 0.4 K/uL (0.1-1.30); MONOCYTES % (AUTO) 3.3 % (2.0-12.0); NEUTROPHILS # (AUTO) 9.3 K/uL (1.8-8.9); PLATELET COUNT (AUTO) 375 K/uL (150-450); RED BLOOD CELL COUNT(AUTO) 2.61 MIL/uL (4.0-5.2); WHITE BLOOD COUNT (AUTO) 10.6 K/uL (4.3-11.0)
[2022-01-07 05:11] LABS: CALCIUM, SERUM 7.6 mg/dL (8.5-10.1); CARBON DIOXIDE 28 mmol/L (21-32); CHLORIDE 112 mmol/L (98-107); CREATININE 0.8 mg/dL (0.6-1.3); GLUCOSE 164 mg/dL (74-106); MAGNESIUM 1.9 mg/dL (1.8-2.4); PHOSPHORUS 4.3 mg/dL (2.5-4.9); POTASSIUM 3.8 mmol/L (3.5-5.1); SODIUM SERUM 147 mmol/L (136-145); UREA NITROGEN, BLOOD 10 mg/dL (7-18)
[2022-01-07] MEDS: ZOSYN IVPB 2.25 G in IV D5W 50ml IV SCH ×3 (05:50→17:36)
--- NOTE | 2022-01-07 07:28 | NUR ---
RN NOTES ENDORSED CARE OF PATIENT TO AM NURSE. ALL PATIENT NEEDS MET THROUGHOUT SHIFT. NO SIGNIFICANT FINDINGS UPON ALL NURSING ASSESSMENTS. SAFETY MEASURES IMPLEMENTED PER HOSPITAL PROTOCOLS. ENDORSE CARE OF PATIENT TO AM NURSE FOR COREY.
--- NOTE | 2022-01-07 08:00 | NUR ---
RN NOTES NO SEDATION VACATION TODAY PER DR SANCHEZ.
[2022-01-07] MEDS: PANTOPRAZOLE 40 MG/PACK PACK NG SCH (08:49)
[2022-01-07] MEDS: LEVETIRACETAM SOL (5 ML) 100 MG/ML UDC NG SCH ×2 (09:22→21:18)
[2022-01-07] MEDS: JEVITY 1.2 CAL 1,000 ML BOTTLE GT PRN (10:19)
[2022-01-07] MEDS: ACETAMINOPHEN 650 MG/20.3 ML UDC NG PRN ×2 (10:21→21:19)
--- NOTE | 2022-01-07 10:21 | NUR ---
RN NOTES ADMINISTERED TYLENOL 650 ML VIA OGT FOR T-100.7F.ALSO APPLIED COOLING MEASURE.
[2022-01-07] MEDS: IV NS 0.9% 1,000 ML IV PRN (12:53)
--- NOTE | 2022-01-07 13:00 | NUR ---
RN NOTES PATIENT HR WAS 58 TITRATED DIPRIVAN PER PROTOCOL, AND WAS VERY SEDATED. ASSIST TURN AND REPOSTION Q 2 HR. MEDICATION WERE ADMINISTERED FOR FEVER EFFECTIVE, T-98.6F. WILL FOLLOW UP.
--- NOTE | 2022-01-07 18:30 | NUR ---
RN NOTES PM CARE DONE, DUE MEDICATION ADMINISTERED, NO ACURE RESPIRATORY DISTRESS. PATIENT TOLERATING SEDATION WELL, INFUSING DIPRIVN 35MCG/KG/MIN , AN NS @75 ML/HR INTACT. NO RESIDUAL. OUTPUT WAS 1400ML. ENDORSED ONCOMING NURSE FOLLOW PLAN OF CARE.
--- NOTE | 2022-01-07 21:10 | NUR ---
ICU/STARCH COOKER SEDATION WAS TITRATED UP FOR AGITATION, BY KIDNEY PULLER NURSE.SEE IV SPREAD SHEET FOR THIS. WILL CONTINUE TO MONITOR THIS PT.
[2022-01-07] MEDS: ENOXAPARIN SODIUM 30 MG/0.3 ML DISP.SYRIN SQ SCH (21:19)
--- NOTE | 2022-01-07 21:30 | NUR ---
ICU/DAIRY BACTERIOLOGIST PT WAS GIVEN TYLENOL 650MG VIA G/TUBE FOR FLACC SCALE 5/10. WILL MONITOR THIS PT. PT WAS TUNED AND REPOSITIONED FOR COMFORT AND CARE.
--- NOTE | 2022-01-07 23:10 | NUR ---
ICU/TAX MANAGER CPA SEDATION WAS TITRATED DOWN BY WINK CUTTER OPERATOR NURSE. PT APPEARS TO BE COMFORTABLE, PT WAS TURNED AND REPOSITIONED FOR COMFORT AND CARE.
[2022-01-08] VITALS (42 sets, daily range): BP systolic 94–169; BP diastolic 47–84
[2022-01-08] MEDS: ZOSYN IVPB 2.25 G in IV D5W 50ml IV SCH ×4 (00:03→17:14)
[2022-01-08] MEDS: PROPOFOL 100 ML IV PRN ×2 (03:17→09:56)
[2022-01-08] MEDS: IV NS 0.9% 1,000 ML IV PRN ×2 (03:18→15:52)
[2022-01-08 04:13] LABS: BASOPHILS % (AUTO) 0.3 % (0.0-2.0); EOSINOPHILS % (AUTO) 3.3 % (0.0-6.0); HEMATOCRIT 22 % (33-45); HEMOGLOBIN 7.2 g/dL (11.5-14.8); LYMPHOCYTES # (AUTO) 0.6 K/uL (0.8-4.8); LYMPHOCYTES % (AUTO) 5.6 % (20.0-44.0); MEAN CORPUSCULAR HGB CONC 33 g/dl (31.0-36.0); MEAN CORPUSCULAR VOLUME 88 fL (82-100); MONOCYTES # (AUTO) 0.3 K/uL (0.1-1.30); NEUTROPHILS # (AUTO) 8.7 K/uL (1.8-8.9); NEUTROPHILS % (AUTO) 87.8 % (43.0-81.0); PLATELET COUNT (AUTO) 427 K/uL (150-450); RED BLOOD CELL COUNT(AUTO) 2.46 MIL/uL (4.0-5.2); WHITE BLOOD COUNT (AUTO) 9.9 K/uL (4.3-11.0)
[2022-01-08 04:23] LABS: CALCIUM, SERUM 7.5 mg/dL (8.5-10.1); CARBON DIOXIDE 28 mmol/L (21-32); CHLORIDE 111 mmol/L (98-107); CREATININE 0.7 mg/dL (0.6-1.3); GLUCOSE 124 mg/dL (74-106); MAGNESIUM 1.9 mg/dL (1.8-2.4); POTASSIUM 3.6 mmol/L (3.5-5.1); SODIUM SERUM 144 mmol/L (136-145); UREA NITROGEN, BLOOD 11 mg/dL (7-18)
--- NOTE | 2022-01-08 07:35 | NUR ---
RN OPENING NOTE PATIENT RECEIVED IN BED, SEDATED. PATIENT WITH ET TUBE AND VENT WITH FIO2 40% PEEP 0, NO SIGNS OF LABORED BREATHING SAT 99% ON BEDSIDE MONITOR. FLORES CATH IN PLACE. OG TUBE IN PLACE RUNNING JEVITY AT 45CC/HR. RIGHT IJ TLC IN PLACE RUNNING NS AT 75CC/HR AND DIPRIVAN AT 35MCG/KG/MIN. BED LOCKED AND IN LOWEST POSITION, CALL LIGHT WITHIN REACH, 3 SIDE RAILS UP.
[2022-01-08] MEDS: PANTOPRAZOLE 40 MG/PACK PACK NG SCH (08:05)
[2022-01-08] MEDS: LEVETIRACETAM SOL (5 ML) 100 MG/ML UDC NG SCH ×2 (08:05→21:17)
[2022-01-08] MEDS: JEVITY 1.2 CAL 1,000 ML BOTTLE GT PRN (10:11)
--- NOTE | 2022-01-08 18:38 | NUR ---
RN OPENING NOTE PATIENT REMAINS IN BED. PATIENT WITH ET TUBE AND VENT WITH FIO2 40% PEEP 0, NO SIGNS OF LABORED BREATHING SAT 98% ON BEDSIDE MONITOR. FLORES CATH IN PLACE. OG TUBE IN PLACE RUNNING JEVITY AT 45CC/HR. RIGHT IJ TLC IN PLACE RUNNING NS AT 75CC/HR. DIPRIVAN DRIP STOPPED PER DR. METZGER ORDER. ALL NEEDS ATTENDED DURING SHIFT. BED LOCKED AND IN LOWEST POSITION, CALL LIGHT WITHIN REACH, 3 SIDE RAILS UP. WILL ENDORSE TO COBBLER SOLE NURSE.
--- NOTE | 2022-01-08 21:00 | NUR ---
ICU/SUPERINTENDENT STEVEDORING PT WAS GIVEN TYLENOL 650MG VIA G/TUBE FOR FLACC SCALE 5/10. WILL MONITOR THIS PT AND HER PAIN. PT WAS TUNED AND REPOSITIONED FOR COMFORT AND CARE.
[2022-01-08] MEDS: ENOXAPARIN SODIUM 30 MG/0.3 ML DISP.SYRIN SQ SCH (21:17)
[2022-01-08] MEDS: ACETAMINOPHEN 650 MG/20.3 ML UDC NG PRN (21:17)
[2022-01-09] VITALS (24 sets, daily range): BP systolic 103–157; BP diastolic 51–109
[2022-01-09] MEDS: ZOSYN IVPB 2.25 G in IV D5W 50ml IV SCH ×5 (00:19→23:31)
[2022-01-09] MEDS: JEVITY 1.2 CAL 1,000 ML BOTTLE GT PRN (04:25)
[2022-01-09] MEDS: IV NS 0.9% 1,000 ML IV PRN ×2 (04:25→17:04)
[2022-01-09 04:38] LABS: BASOPHILS % (AUTO) 0.2 % (0.0-2.0); EOSINOPHILS % (AUTO) 3.3 % (0.0-6.0); HEMATOCRIT 22 % (33-45); HEMOGLOBIN 7.5 g/dL (11.5-14.8); LYMPHOCYTES # (AUTO) 0.7 K/uL (0.8-4.8); LYMPHOCYTES % (AUTO) 6.8 % (20.0-44.0); MEAN CORPUSCULAR HGB CONC 34 g/dl (31.0-36.0); MEAN CORPUSCULAR VOLUME 88 fL (82-100); MONOCYTES # (AUTO) 0.4 K/uL (0.1-1.30); NEUTROPHILS # (AUTO) 8.5 K/uL (1.8-8.9); NEUTROPHILS % (AUTO) 85.7 % (43.0-81.0); PLATELET COUNT (AUTO) 497 K/uL (150-450); RED BLOOD CELL COUNT(AUTO) 2.48 MIL/uL (4.0-5.2); WHITE BLOOD COUNT (AUTO) 9.9 K/uL (4.3-11.0)
[2022-01-09 04:44] LABS: CHLORIDE 110 mmol/L (98-107); CREATININE 0.7 mg/dL (0.6-1.3); GLUCOSE 109 mg/dL (74-106); POTASSIUM 3.9 mmol/L (3.5-5.1); SODIUM SERUM 142 mmol/L (136-145); UREA NITROGEN, BLOOD 12 mg/dL (7-18)
--- NOTE | 2022-01-09 07:30 | NUR ---
RN OPENING NOTE PT RECEIVED IN BED WITH HOB 35 DEGREES. PT IS ON MECHANICAL VENT WITH ALL PRESCRIBED SETTINGS TOLERATING WELL WITH NO SIGNS OF DISTRESS OR LABORED BREATHING O2 SAT 98%. NG TUBE IS IN PLACE WITH POSITIVE PLACEMENT INFUSING WITH JEVITY @45ML/HR. FC IS IN PLACE DRAINING URINE TO GRAVITY. IV ACCESS R IJ PICC AND L H 18G INFUSING WITH NS @75ML/HR. BED IS LOCKED IN LOWEST POSITION X2 BED RAILS UP AND ALL HOSPITAL SAFETY MEASURES ARE IN PLACE. WILL CONTINUE TO MONITOR THIS SHIFT.
[2022-01-09] MEDS: PANTOPRAZOLE 40 MG/PACK PACK NG SCH (08:22)
[2022-01-09] MEDS: LEVETIRACETAM SOL (5 ML) 100 MG/ML UDC NG SCH ×2 (08:22→21:19)
--- NOTE | 2022-01-09 09:05 | NUR ---
RN NOTE: SEDATION PER DR. METZGER, WILL RESTART PT ON DIPRIVAN AND INCREASE NEEDED PER PROTOCOL.
[2022-01-09] MEDS: PROPOFOL 100 ML IV PRN ×2 (09:07→23:32)
--- NOTE | 2022-01-09 18:47 | NUR ---
RN CLOSING NOTE PT IS IN BED WITH HOB 35 DEGREES. PT IS ON MECHANICAL VENT WITH ALL PRESCRIBED SETTINGS TOLERATING WELL WITH NO SIGNS OF DISTRESS OR LABORED BREATHING O2 SAT 99%. NG TUBE IS IN PLACE WITH POSITIVE PLACEMENT INFUSING WITH JEVITY @45ML/HR. FC IS IN PLACE DRAINING URINE TO GRAVITY -800ML. IV ACCESS R IJ PICC AND L H 18G INFUSING WITH NS @75ML/HR AND DIPRIVAN @15MCG/HR. BED IS LOCKED IN LOWEST POSITION X2 BED RAILS UP AND ALL HOSPITAL SAFETY MEASURES ARE IN PLACE. WILL ENDORSE TO HORSE IDENTIFIER NURSE FOR COREY.
--- NOTE | 2022-01-09 20:30 | NUR ---
ICU/OPEN SOAPER TENDER PT APPEARS TO BE MILD AGITATED, CHARGE NURSE MADE AWARE OF THIS, INCREASED THE SEDATION. WILL CONTINUE TO MONITOR THIS PT.
[2022-01-09] MEDS: ACETAMINOPHEN 650 MG/20.3 ML UDC NG PRN (21:19)
[2022-01-09] MEDS: ENOXAPARIN SODIUM 30 MG/0.3 ML DISP.SYRIN SQ SCH (21:20)
--- NOTE | 2022-01-09 21:41 | NUR ---
ICU/CORPORATE BOND TRADER PT WAS GIVEN TYLENOL 650MG VIA G/TUBE FOR FLACC SCALE 4/10. PT WAS TURNED AND REPOSITIONED FOR COMFORT AND CARE.
[2022-01-10] VITALS (37 sets, daily range): BP systolic 100–161; BP diastolic 37–86
[2022-01-10] MEDS: JEVITY 1.2 CAL 1,000 ML BOTTLE GT PRN (00:56)
[2022-01-10 04:36] LABS: BASOPHILS % (AUTO) 0.4 % (0.0-2.0); EOSINOPHILS % (AUTO) 2.6 % (0.0-6.0); HEMATOCRIT 22 % (33-45); HEMOGLOBIN 7.2 g/dL (11.5-14.8); LYMPHOCYTES # (AUTO) 0.6 K/uL (0.8-4.8); LYMPHOCYTES % (AUTO) 5.8 % (20.0-44.0); MEAN CORPUSCULAR HGB CONC 33 g/dl (31.0-36.0); MEAN CORPUSCULAR VOLUME 88 fL (82-100); MONOCYTES # (AUTO) 0.4 K/uL (0.1-1.30); MONOCYTES % (AUTO) 4.4 % (2.0-12.0); NEUTROPHILS # (AUTO) 8.7 K/uL (1.8-8.9); NEUTROPHILS % (AUTO) 86.8 % (43.0-81.0); PLATELET COUNT (AUTO) 510 K/uL (150-450); RED BLOOD CELL COUNT(AUTO) 2.44 MIL/uL (4.0-5.2); WHITE BLOOD COUNT (AUTO) 10.1 K/uL (4.3-11.0)
[2022-01-10 04:45] LABS: CALCIUM, SERUM 8.1 mg/dL (8.5-10.1); CARBON DIOXIDE 26 mmol/L (21-32); CHLORIDE 109 mmol/L (98-107); CREATININE 0.7 mg/dL (0.6-1.3); GLUCOSE 116 mg/dL (74-106); POTASSIUM 3.6 mmol/L (3.5-5.1); SODIUM SERUM 143 mmol/L (136-145); UREA NITROGEN, BLOOD 10 mg/dL (7-18)
[2022-01-10] MEDS: ZOSYN IVPB 2.25 G in IV D5W 50ml IV SCH (05:44)
[2022-01-10] MEDS: IV NS 0.9% 1,000 ML IV PRN ×2 (05:45→19:55)
[2022-01-10] MEDS: ACETAMINOPHEN 650 MG/20.3 ML UDC NG PRN ×2 (05:45→18:09)
--- NOTE | 2022-01-10 06:00 | NUR ---
ICU/ONLINE PROGRAM COORDINATOR PT WAS GIVEN TYLENOL 650MG VIA G/TUBE FOR FLACC SCALE 4/10. PT WAS TURNED AND REPOSITIONED FOR COMFORT AND CARE.
[2022-01-10] MEDS: LEVETIRACETAM SOL (5 ML) 100 MG/ML UDC NG SCH ×2 (07:53→21:36)
[2022-01-10] MEDS: PANTOPRAZOLE 40 MG/PACK PACK NG SCH (07:53)
--- NOTE | 2022-01-10 08:00 | NUR ---
RN NOTES RECEIVED PT IS ON MECHANICAL VENT TOLERATING WELL, NO SIGNS OF DISTRESS OR LABORED BREATHING O2 SAT 99%. SUCTION MOUTH CARE DONE, NG TUBE IS IN PLACE WITH POSITIVE PLACEMENT INFUSING WITH JEVITY @45ML/HR. FC IS IN PLACE. IV ACCESS R IJ PICC INFUSING WITH NS @75ML/HR AND DIPRIVAN @15MCG/HR. SUCTION MOUTH CARE DONE. ASSIST TURN AND REPOSTION Q 2 HR. BED IS LOCKED IN LOWEST POSITION X2 BED RAILS UP AND ALL HOSPITAL SAFETY MEASURES ARE IN PLACE.
--- NOTE | 2022-01-10 08:23 | NUR ---
RN NOTES PER DR ROBLES ORDER NO SEDATION VACATION TODAY. KEEP PATIENT ON COMFORT.
[2022-01-10] MEDS: PROPOFOL 100 ML IV PRN ×2 (12:04→19:55)
--- NOTE | 2022-01-10 18:09 | NUR ---
RN NOTES ADMINISTERED TYLENOL 650 MG VIA OGT T-99.5f. PM CARE DONE SUCTION, TURN AND REPOSTION Q 2 HR, COOLING MEASURE ALSO GIVEN. INFUSING DIPRIVAN 35MCG/KG/MIN, AND NS@75 ML/HR INTACT. PATIENT TOLERATING FEEDING WELL. ENDORSED ONCOMING NURSE COREY.
[2022-01-10] MEDS: ENOXAPARIN SODIUM 30 MG/0.3 ML DISP.SYRIN SQ SCH (21:37)
[2022-01-11] VITALS (26 sets, daily range): BP systolic 98–150; BP diastolic 41–83
[2022-01-11] MEDS: JEVITY 1.2 CAL 1,000 ML BOTTLE GT PRN (01:00)
[2022-01-11] MEDS: PROPOFOL 100 ML IV PRN ×4 (01:36→22:11)
[2022-01-11 04:51] LABS: BASOPHILS % (AUTO) 0.4 % (0.0-2.0); CALCIUM, SERUM 7.7 mg/dL (8.5-10.1); CARBON DIOXIDE 25 mmol/L (21-32); CHLORIDE 110 mmol/L (98-107); CREATININE 0.7 mg/dL (0.6-1.3); EOSINOPHILS % (AUTO) 3.6 % (0.0-6.0); GLUCOSE 100 mg/dL (74-106); HEMATOCRIT 21 % (33-45); HEMOGLOBIN 7.1 g/dL (11.5-14.8); LYMPHOCYTES # (AUTO) 0.6 K/uL (0.8-4.8); LYMPHOCYTES % (AUTO) 6.4 % (20.0-44.0); MEAN CORPUSCULAR HGB CONC 34 g/dl (31.0-36.0); MEAN CORPUSCULAR VOLUME 88 fL (82-100); MONOCYTES # (AUTO) 0.5 K/uL (0.1-1.30); MONOCYTES % (AUTO) 5.5 % (2.0-12.0); NEUTROPHILS # (AUTO) 7.4 K/uL (1.8-8.9); NEUTROPHILS % (AUTO) 84.1 % (43.0-81.0); PLATELET COUNT (AUTO) 527 K/uL (150-450); POTASSIUM 3.8 mmol/L (3.5-5.1); RED BLOOD CELL COUNT(AUTO) 2.43 MIL/uL (4.0-5.2); SODIUM SERUM 142 mmol/L (136-145); UREA NITROGEN, BLOOD 9 mg/dL (7-18); WHITE BLOOD COUNT (AUTO) 8.8 K/uL (4.3-11.0)
--- NOTE | 2022-01-11 07:50 | NUR ---
RN NOTES PT IS ON MECHANICAL VENT TOLERATING WELL, NO SIGNS OF DISTRESS OR LABORED BREATHING O2 SAT 99%. SUCTION MOUTH CARE DONE, NG TUBE IS IN PLACE WITH POSITIVE PLACEMENT INFUSING WITH JEVITY @45ML/HR NO RESIDUAL. NO SEDATION VACATION TODAY PER Dr ROBLES ORDER. IV ACCESS ON RIJ PICC INFUSING WITH NS @75ML/HR AND DIPRIVAN @ 35 MCG/KG/MIN. DUE MEDICATION ADMINISTERED VIA OGT, SUCTION, MOUTH CARE DONE. ASSIST TURN AND REPOSTION Q 2 HR. BED IS LOCKED IN LOWEST POSITION X2 BED RAILS UP. NEEDS ATTENDED AND ANTICIPATED. WILL FOLLOW UP
[2022-01-11] MEDS: PANTOPRAZOLE 40 MG/PACK PACK NG SCH (08:36)
[2022-01-11] MEDS: LEVETIRACETAM SOL (5 ML) 100 MG/ML UDC NG SCH ×2 (08:36→20:32)
[2022-01-11] MEDS: FLUCONAZOLE (100 MG) 100 MG TABLET PO SCH (08:36)
[2022-01-11] MEDS: IV NS 0.9% 1,000 ML IV PRN ×2 (08:37→22:11)
--- NOTE | 2022-01-11 16:00 | NUR ---
RN NOTES GET CALL FROM PATIENT'S SON NAME MIKI, AND PER SON HE WILL VISIT MOTHER ON COMING FRIDAY FOR FINAL DECISION.
[2022-01-11] MEDS: ENOXAPARIN SODIUM 30 MG/0.3 ML DISP.SYRIN SQ SCH (20:33)
[2022-01-12] VITALS (35 sets, daily range): BP systolic 108–144; BP diastolic 48–87
[2022-01-12] MEDS: JEVITY 1.2 CAL 1,000 ML BOTTLE GT PRN ×2 (01:15→23:11)
[2022-01-12] MEDS: PROPOFOL 100 ML IV PRN ×4 (04:30→23:11)
[2022-01-12 05:10] LABS: BASOPHILS % (AUTO) 0.5 % (0.0-2.0); EOSINOPHILS % (AUTO) 3.6 % (0.0-6.0); HEMATOCRIT 22 % (33-45); HEMOGLOBIN 7.3 g/dL (11.5-14.8); LYMPHOCYTES # (AUTO) 0.5 K/uL (0.8-4.8); LYMPHOCYTES % (AUTO) 5.2 % (20.0-44.0); MEAN CORPUSCULAR HGB CONC 34 g/dl (31.0-36.0); MEAN CORPUSCULAR VOLUME 89 fL (82-100); MONOCYTES # (AUTO) 0.5 K/uL (0.1-1.30); MONOCYTES % (AUTO) 5.6 % (2.0-12.0); NEUTROPHILS # (AUTO) 7.4 K/uL (1.8-8.9); NEUTROPHILS % (AUTO) 85.1 % (43.0-81.0); PLATELET COUNT (AUTO) 547 K/uL (150-450); RED BLOOD CELL COUNT(AUTO) 2.43 MIL/uL (4.0-5.2); WHITE BLOOD COUNT (AUTO) 8.7 K/uL (4.3-11.0)
[2022-01-12 05:22] LABS: CALCIUM, SERUM 7.7 mg/dL (8.5-10.1); CARBON DIOXIDE 27 mmol/L (21-32); CHLORIDE 112 mmol/L (98-107); CREATININE 0.6 mg/dL (0.6-1.3); GLUCOSE 126 mg/dL (74-106); POTASSIUM 3.5 mmol/L (3.5-5.1); SODIUM SERUM 144 mmol/L (136-145); UREA NITROGEN, BLOOD 8 mg/dL (7-18)
--- NOTE | 2022-01-12 07:30 | NUR ---
RN NOTES PT FOUND SEMI FOWLERS DISPLAYING NO S/S OF DISTRESS, FLACC = 0, RIKERS = 2 (ADJUSTMENTS TO FOLLOW) AND BILATERAL RISE AND FALL OF THE CHEST OBSERVED. HOB = 35 DEGREES. R IJ TRIPLE LUMEN IS PATIENT AND INTACT. FLORES CATH BELOW PATIENT DRAINING BY GRAVITY. RN WILL CONTINUE POC AND ANTICIPATE NEEDS. SAFETY MEASURES IN PLACE, BED LOCKED AND IN LOWEST POSITION, SIDE RAILS UPX2, CALL LIGHT WITHIN REACH, BED ALARM ARMED.
[2022-01-12] MEDS: PANTOPRAZOLE 40 MG/PACK PACK NG SCH (07:56)
[2022-01-12] MEDS: FLUCONAZOLE (100 MG) 100 MG TABLET PO SCH (08:14)
[2022-01-12] MEDS: LEVETIRACETAM SOL (5 ML) 100 MG/ML UDC NG SCH ×2 (08:14→21:06)
[2022-01-12] MEDS: IV NS 0.9% 1,000 ML IV PRN ×2 (11:13→23:11)
--- NOTE | 2022-01-12 19:08 | NUR ---
RN NOTES PT FOUND SEMI FOWLERS DISPLAYING NO S/S OF DISTRESS, FLACC = 0, RIKERS = 3 AND BILATERAL RISE AND FALL OF THE CHEST OBSERVED. HOB = 35 DEGREES. R IJ TRIPLE LUMEN IS PATIENT AND INTACT. FLORES CATH BELOW PATIENT DRAINING BY GRAVITY. SBAR AND REPORT GIVEN TO CIGARETTE MACHINE OPERATOR RN, ALL QUESTIONS ANSWERED. SAFETY MEASURES IN PLACE, BED LOCKED AND IN LOWEST POSITION, SIDE RAILS UPX2, CALL LIGHT WITHIN REACH, BED ALARM ARMED. PT ENDORSED IN STABLE CONDITION FOR COREY.
[2022-01-12] MEDS: ENOXAPARIN SODIUM 30 MG/0.3 ML DISP.SYRIN SQ SCH (21:06)
[2022-01-13] VITALS (19 sets, daily range): BP systolic 109–148; BP diastolic 46–87
[2022-01-13] MEDS: PROPOFOL 100 ML IV PRN (03:06)
[2022-01-13 04:57] LABS: BASOPHILS % (AUTO) 0.7 % (0.0-2.0); EOSINOPHILS % (AUTO) 3.9 % (0.0-6.0); LYMPHOCYTES # (AUTO) 0.5 K/uL (0.8-4.8); LYMPHOCYTES % (AUTO) 7.6 % (20.0-44.0); MEAN CORPUSCULAR HGB CONC 34 g/dl (31.0-36.0); MEAN CORPUSCULAR VOLUME 88 fL (82-100); MONOCYTES # (AUTO) 0.4 K/uL (0.1-1.30); MONOCYTES % (AUTO) 5.4 % (2.0-12.0); NEUTROPHILS # (AUTO) 5.8 K/uL (1.8-8.9); NEUTROPHILS % (AUTO) 82.4 % (43.0-81.0); PLATELET COUNT (AUTO) 503 K/uL (150-450); RED BLOOD CELL COUNT(AUTO) 2.23 MIL/uL (4.0-5.2); WHITE BLOOD COUNT (AUTO) 7.1 K/uL (4.3-11.0)
[2022-01-13 05:09] LABS: CALCIUM, SERUM 7.4 mg/dL (8.5-10.1); CARBON DIOXIDE 27 mmol/L (21-32); CHLORIDE 112 mmol/L (98-107); CREATININE 0.7 mg/dL (0.6-1.3); GLUCOSE 123 mg/dL (74-106); POTASSIUM 3.6 mmol/L (3.5-5.1); SODIUM SERUM 143 mmol/L (136-145); UREA NITROGEN, BLOOD 8 mg/dL (7-18)
[2022-01-13 05:14] LABS: HEMOGLOBIN 6.6 g/dL (11.5-14.8)
[2022-01-13 05:15] LABS: HEMATOCRIT 20 % (33-45)
--- NOTE | 2022-01-13 07:15 | NUR ---
RT DAILY ABGS CANCELLED PER PROTOCOL. DAILY ABGS NO LONGER REQUIRED PER DR METZGER.
[2022-01-13 07:30] LABS: EOSINOPHILS % (MANUAL) 1 % (0-4); LYMPHOCYTES % (MANUAL) 9 % (16-48); MONOCYTES % (MANUAL) 7 % (0-11.0); NEUTROPHILS % (MANUAL) 83 (42-76)
--- NOTE | 2022-01-13 07:30 | NUR ---
RN open note Patient IS ON MECHANICAL VENT ETT @ 24 lip line, vent settings AC 20 , TV 450, FIO2 40, PEEP 5. TOLERATING WELL, NO SIGNS OF DISTRESS OR LABORED BREATHING O2 SAT 99%. JEVITY @45ML/HR. FC IS IN PLACE PATENT AND DRAINING STRAW COLORED URINE. IV ACCESS R IJ PICC DIPRIVAN @40MCG/HR.
[2022-01-13] MEDS: LEVETIRACETAM SOL (5 ML) 100 MG/ML UDC NG SCH (08:20)
[2022-01-13] MEDS: PANTOPRAZOLE 40 MG/PACK PACK NG SCH (08:21)
[2022-01-13] MEDS: FLUCONAZOLE (100 MG) 100 MG TABLET PO SCH (08:21)
--- NOTE | 2022-01-13 09:35 | NUR ---
MD VISIT DR METZGER SPOKE TO FAMILY AND RNMD GAVE ORDERS: 5 MG MORPHINE IV PUSH AND START IV INFUSION OF MORPHINE 5 MG/HR TITRATE TO 20MG/HR TO MAINTAIN COMFORT. RN ACKNOWLEDGED AND WILL ENTER ORDERS DIRECTED. Addendum: 01/13/22 at 0948 by TAY POMPA RN MD ALSO GAVE ORDERS TO STOP KEPPRA, PROTONIX, LOVENOX AND DIFLUCAN
[2022-01-13] MEDS ORDERED: MORPHINE SULFATE INJ 2 MG/ML DISP.SYRIN IV ONE (10:00)
[2022-01-13] MEDS ORDERED: MORPHINE SULFATE PF DRIP 250 MG in IV D5W 240 ML IV PRN (10:00)
[2022-01-13] MEDS ORDERED: SCOPOLAMINE PATCH 1 MG/72HR TD SCH (11:30)
--- NOTE | 2022-01-13 11:40 | NUR ---
RT PER MD ORDER PATIENT WAS COMPASSIONATELY EXTUBATED AND PLACED ON NRB MASK.
--- NOTE | 2022-01-13 11:50 | NUR ---
RN NOTE Family @ bedisde. Son discussed with Rn wishes to cremate with [facility] to [facility].
--- NOTE | 2022-01-13 17:02 | NUR ---
RN NOTE Gave patient report to nurse from room 306 [place]. Patient transfered from ICU 259. Patient is on Morphine drip 7.5 mg/hr. On comfort measures.
--- NOTE | 2022-01-13 17:29 | NUR ---
MS WHITE OPENING NOTES RECEIVED REPORT FROM CHRISTOPHER BOWLES. PATIENT IS FROM ICU @ 1710, CAME FOR COMFORT MEASURES. PATIENT IS SLEEPING COMFORTABLY IN BED, ONLY RESPONDING WITH TOUCH. PATIENT IS IN MORPHINE DRIP TITRATED AT 7.5. PATIENT IS IN NON-REBREATHER MASK @ 8 L. VITALS ARE WITHIN LEVELS: 134/79, HR 104, 95%, RR 19. WILL CONTINUE TO MONITOR FOR COREY.
--- NOTE | 2022-01-13 19:36 | NUR ---
MS RN CLOSING NOTES PATIENT IS FROM ICU @ 1710, CAME FOR COMFORT MEASURES. PATIENT IS SLEEPING COMFORTABLY IN BED, ONLY RESPONDING WITH TOUCH. PATIENT IS IN MORPHINE DRIP TITRATED AT 7.5ML. PATIENT IS IN NON-REBREATHER MASK @ 8 L. VITALS ARE WITHIN LEVELS: 134/79, HR 104, 95%, RR 19. SAFETY MEASURES INITIATED. WILL ENDORSE TO INCOMING SHIFT FOR COREY.
--- NOTE | 2022-01-13 19:39 | NUR ---
MS RN OPENING NOTES RECEIVED PATIENT SLEEPING COMFORTABLY IN BED, RESPONDS TO TOUCH ONLY; PATIENT ON MORPHINE DRIP VIA RIJ, TITRATED AT 7.5ML. PATIENT IS IN NON-REBREATHER MASK @ 8 L. G TUBE NOTED; SAFETY MEASURES INITIATED. COMFORT MEASURES INITIATED; WILL CONT TO MONITOR AND CONT PLAN OF CARE
--- NOTE | 2022-01-14 03:10 | NUR ---
MS RN NOTES NO LUNG SOUNDS PRESENT UPON AUSCULTATION; UNABLE TO OBTAIN VITAL SIGNS AND SPO2; RIJ REMOVED WITH PRESSURE APPLIED FOR 15 MINUTES; FLORES CATH REMOVED WITH NO ISSUES; POST-MORTEM CARE PROVIDED; MD RAMON NOTIFIED 031, NURSING CITY MAINTENANCE MANAGER NOTIFIED 031; ADMITTING ALSO NOTIFIED 0320; ATTEMPTED TO CONTACT SON 0320 AND 032, NO ANSWER, VOICEMAIL WAS LEFT FOR SON TO CALL BACK; 0322 NOTIFIED [facility], PER [facility] PATIENT DOES NOT QUALIFY TO BE A DONOR; OKAY TO RELEASE BODY, CASE # [id number]. SPOKE WITH [employer]ORTU[employer] CINDY WHITE [phone], PER MORTUARY, THEY SPOKE WITH PATIENT'S SON (MIKI), MENTIONED HE HAD ALREADY AUTHORIZED FOR RELEASE OF BODY; CHARGE NURSE AWARE; WILL AWAIT [employer] FOR HEAD KILN OPERATOR.
[2022-01-14] MEDS ORDERED: KEY,NONCONTROL,TO KEEP IN PYXI 1 EA MC ONE (03:37)
--- NOTE | 2022-01-14 05:41 | NUR ---
MS RN NOTES SPOKE WITH SON REGARDING PATIENT, SON AND FAMILY INFORMED; FAMILY UNABLE TO COME AND WILL FOLLOW UP WITH NIKOLE
--- NOTE | 2022-01-14 05:45 | NUR ---
MS RN NOTES PATIENT PICKED UP AND BROUGHT TO [facility] [place] CHARGE NURSE AWARE
== END 2022-01-14 03:10 | DRG 870 ==
LOC: ER 22:32 → ICU 12-29 00:33 → MED 01-13 17:13
PROVIDERS: ADMIT Nurse Practitioner Acute Care; ATTEND Nurse Practitioner Acute Care
PROC: 5A1955Z Respiratory Ventilation, Greater than 96 Consecutive Hours (ICD-10-PCS; principal; 2021-12-29)
PROC: 0BH18EZ Insertion of Endotracheal Airway into Trachea, Via Natural or Artificial Opening Endoscopic (ICD-10-PCS; 2021-12-29)
DX: A41.9 Sepsis, unspecified organism (principal); G93.41 Metabolic encephalopathy; N17.0 Acute kidney failure with tubular necrosis; Z66 Do not resuscitate; Z51.5 Encounter for palliative care; J96.01 Acute respiratory failure with hypoxia; J18.9 Pneumonia, unspecified organism; R65.21 Severe sepsis with septic shock; G92.8 Other toxic encephalopathy; E43 Unspecified severe protein-calorie malnutrition; D61.818 Other pancytopenia; E87.0 Hyperosmolality and hypernatremia; N39.0 Urinary tract infection, site not specified; G93.1 Anoxic brain damage, not elsewhere classified; E87.6 Hypokalemia; Z20.822 Contact with and (suspected) exposure to COVID-19; D63.8 Anemia in other chronic diseases classified elsewhere; E11.9 Type 2 diabetes mellitus without complications; F02.80 Dementia in other diseases classified elsewhere, unspecified severity, without behavioral disturbance, psychotic disturbance, mood disturbance, and anxiety; G30.9 Alzheimer's disease, unspecified; R33.9 Retention of urine, unspecified; E78.00 Pure hypercholesterolemia, unspecified; E78.5 Hyperlipidemia, unspecified; E88.09 Other disorders of plasma-protein metabolism, not elsewhere classified; I10 Essential (primary) hypertension; Y95 Nosocomial condition; E83.42 Hypomagnesemia; Z88.8 Allergy status to other drugs, medicaments and biological substances; Z79.82 Long term (current) use of aspirin; Z79.899 Other long term (current) drug therapy; D64.9 Anemia, unspecified; R56.9 Unspecified convulsions; Z86.73 Personal history of transient ischemic attack (TIA), and cerebral infarction without residual deficits; D72.819 Decreased white blood cell count, unspecified
CPT/HCPCS: 31720; 36415; 36600; 70450-TC; 71045-TC; 80048-TC; 80061-TC; 80076-TC; 80202-TC; 81001; 82803-TC; 82962-TC; 83605-TC; 83735-TC; 83880; 84100-TC; 84478-TC; 84484-TC; 85025-TC; 85730-TC; 87040-TC; 87070-TC; 87081-TC; 87086-TC; 94002-TC; 94003-TC; 94640-TC; 94760-TC; 94799-TC; 95819-TC; 99082-TC; A4217; C9113; C9803; G0378; J0360; J0692; J1650; J1953; J2060; J2270; J2274; J2543; J3370; J3475; J3480; J3490; J7030; J7050; J7060; J7120